=== PATIENT | male | born 1980 | race Caucasian/White ===

== ENCOUNTER 2017-01-16 16:19 | Outpatient (CLI) | payer OTHER ==
--- NOTE | 2017-01-16 18:09 | MRI Report ---
EXAM: LEFT KNEE MRI WITHOUT CONTRAST EXAM DATE: 01/16/2017 05:26 PM. CLINICAL HISTORY: Knee twisty injury 12/23/16, persistent effusion. COMPARISON: None. TECHNIQUE: Multiplanar, multisequence T1-weighted and fluid-sensitive sequences of the knee without c ontrast. Other: None. FINDINGS: Bones: No fractures or subluxations. No marrow edema. No bone lesions. Articular Cartilage: Unremarkable. Medial Meniscus: Undersurface partial-thickness tear posterior horn medial meniscus. Please see karolina s 501 image 24, series 801 image 23. No displaced fragment. Lateral Meniscus: The lateral meniscus is intact. Cruciate Ligaments: The anterior and posterior cruciate ligaments are intact. Collateral Ligaments: The medial collateral and lateral collateral ligamentous structures are intact. Tendons: The quadriceps, patellar, semimembranosus, and popliteus tendons are unremarkable. Musculature: No edema or fatty atrophy. Other: Trace joint effusion. Small popliteal cyst. No loose bodies. The medial and lateral retinacul a are intact. The subcutaneous tissues and fat pads are unremarkable. IMPRESSION: 1. Undersurface partial-thickness tear posterior horn medial meniscus. No displaced fragment. 2. Lateral meniscus, cruciates and collaterals appear unremarkable. 3. Trace joint effusion, small popliteal cyst. No loose bodies. [facility] MUSCULOSKELET[facility] RADIOLOGY SECTION Referring Provider Line: [phone] SITE ID: [id number]
== END 2017-01-16 16:20 | disposition home or self-care (01) ==
LOC: DI 16:19
PROVIDERS: ATTEND Family Medicine
DX: S83.242A Other tear of medial meniscus, current injury, left knee, initial encounter (principal); M25.462 Effusion, left knee; M71.22 Synovial cyst of popliteal space [Baker], left knee

== ENCOUNTER 2017-08-31 06:16 | Day surgery (SDC) | payer OTHER ==
[2017-08-31] MEDS ORDERED: CELECOXIB 100 MG CAPSULE PO ONE (06:31)
[2017-08-31] MEDS ORDERED: ceFAZolin 2 GM/50 ML 2 GM/50 ML BAG IV ONE (06:32)
[2017-08-31] MEDS ORDERED: ACETAMINOPHEN 1,000 MG/100 ML 100 ML IV ONE (06:32)
[2017-08-31] MEDS ORDERED: LACTATED RINGERS 1,000 ML IV ONE ×3 (06:49→08:20)
[2017-08-31] MEDS ORDERED: ROPIVACAINE 0.5% PF 20 ML AMPULE EP ONE (08:03)
[2017-08-31] MEDS ORDERED: DEXAMETHASONE 4 MG/ML VIAL IVP ONE (08:03)
[2017-08-31] MEDS ORDERED: PROPOFOL 200 MG/20 ML VIAL IVP ONE (08:03)
[2017-08-31] MEDS ORDERED: ONDANSETRON 4 MG/2 ML VIAL IVP ONE (08:03)
[2017-08-31] MEDS ORDERED: ESMOLOL 100 MG/10 ML VIAL IVP ONE (08:03)
[2017-08-31] MEDS ORDERED: MIDAZOLAM 2 MG/2 ML VIAL IVP ONE (08:03)
[2017-08-31] MEDS ORDERED: fentaNYL 100 MCG/2 ML VIAL IVP ONE (08:03)
[2017-08-31] MEDS ORDERED: LIDOCAINE MPF 1%-EPI 1:200000 30 ML VIAL SUBQ ONE ×2 (08:29→09:49)
[2017-08-31] MEDS ORDERED: BUPIVACAINE 0.5% PF 30 ML VIAL INFIL ONE ×2 (08:29→09:49)
[2017-08-31] MEDS ORDERED: EPINEPHrine 1 MG/ML AMP IR ONE (08:41)
[2017-08-31] MEDS ORDERED: KETOROLAC 15 MG/ML VIAL ONE (10:22)
[2017-08-31] MEDS: fentaNYL 100 MCG/2 ML VIAL ONE ×2 (10:33→10:38)
[2017-08-31] MEDS ORDERED: SODIUM CHLORIDE FLUSH 0.9% 10 ML SYRINGE ONE (10:38)
[2017-08-31] MEDS ORDERED: HYDROcod/ACETAM 5/325 MG TABLET ONE (11:03)
[2017-08-31 11:32] VITALS: BP 129/74
--- NOTE | 2017-08-31 13:01 | OPERATIVE REPORT ---
DATE OF SERVICE: 08/31/2017 Physician: Gisela Stark MD DATE OF SURGERY: 08/31/2017 PREOPERATIVE DIAGNOSIS: Left knee anterior cruciate ligament and medial meniscus tears. POSTOPERATIVE DIAGNOSIS: Left knee anterior cruciate ligament and medial meniscus tears. PROCEDURE PERFORMED: Left knee exam under anesthesia, arthroscopy, partial medial meniscectomy and allograft anterior cruciate ligament reconstruction. OPERATING SURGEON: Gisela Stark MD ANESTHESIA: General and femoral nerve block. INDICATIONS FOR SURGERY: The patient is a 37-year-old male with an ACL injury of his left knee with subsequent knee pain and giving way episodes and inability to improve with nonoperative measures. MRI confirmed the diagnosis and surgery was recommended for mu-ism of stability. FINDINGS AT SURGERY: The patient's knee exam showed a small effusion that at arthroscopy was nonbloody. The patient had crucial laxity and pivot shift findings. At arthroscopy, the patient was noted to have shredded remnants of ACL and flap tears in the anterior and posterior horns of the medial meniscus representing a displaced and torn bucket-handle tear. The patient's lateral meniscus was intact and cartilaginous surfaces were intact. OPERATIVE PROCEDURE: The patient was taken to the operating room, was given a general anesthetic and a femoral nerve block, was in the supine position with a tourniquet on the thigh and the limb supported in a leg ball. Under tourniquet pressure of 300 mmHg, arthroscopy was undertaken. The findings noted above. A shaver was used to debride back the remnants of ACL and a basket was used to trim the flap tears of the meniscus, anterior and posterior, and remove the fragments with suction. The remaining knee was carefully examined. Then, a notchplasty performed with a bur slightly widening the notch to accommodate an ACL reconstruction. The graft was prepared on the back table utilizing allograft tibialis anterior _TENDON____ [TIME: 02:42] a reconstruction graft. Following this, the graft preparation was done at the back table utilizing tibialis anterior allograft aiming for a size 8 graft and this required slight trimming of the graft in preparation and pant leg incision of the graft to allow passage into the AperFix femoral device passing each limb of the pant leg of the graft into the device with suture on each end and preparing for insertion and the AperFix insertion handle. The tibial drill guide was then utilized to place a tibial tunnel in an isometric position. Following this, the offset guide was used on the lateral wall of the notch to place the femoral tunnel and once these were cleaned and debrided, the graft was inserted through the tunnels up into the femoral tunnel and the AperFix device deployed for fixation. On the tibial side the tensioning handle was applied to the sutures. The graft was rotated to effect an anteromedial and posterolateral bundle orientation and then the graft was fixated in the tunnel using the AperFix system of screw fixation. Excess graft was trimmed away. The knee was examined through range of motion and the knee had been cycled prior to fixation and the graft appeared isometric and well fixed and the pivot shift and Poly exam were stable. Following this, the knee was flushed. Instruments were withdrawn. Portals were closed with interrupted nylon. The anterior knee incision was closed with Monocryl. Sterile dressings were applied. The patient was then placed into the hinged knee brace and taken to the recovery room in stable condition. ESTIMATED BLOOD LOSS: Minimal. COMPLICATIONS: None. COUNTS: Sponge and needle counts correct. TD: 08/31/2017 13:00 URIEL
== END 2017-08-31 06:17 | disposition home or self-care (01) ==
LOC: SDS 06:16
PROVIDERS: ATTEND Orthopaedic Surgery
PROC: 0MRP4KZ Replacement of Left Knee Bursa and Ligament with Nonautologous Tissue Substitute, Percutaneous Endoscopic Approach (ICD-10-PCS; 2017-08-31)
PROC: 0SBD4ZZ Excision of Left Knee Joint, Percutaneous Endoscopic Approach (ICD-10-PCS; principal; 2017-08-31 07:30)
DX: S83.512A Sprain of anterior cruciate ligament of left knee, initial encounter (principal); S83.212A Bucket-handle tear of medial meniscus, current injury, left knee, initial encounter; F17.210 Nicotine dependence, cigarettes, uncomplicated
CPT/HCPCS: 29881; 29888; A9270; C1762; C1776; J0131; J0690; J7120

== ENCOUNTER 2018-12-05 10:39 | Outpatient (CLI) | payer SELFPAY | END 2018-12-05 10:40 | disposition critical access hospital (66) | LOC: EMS 10:39 | PROVIDERS: ATTEND Surgery | DX: R22.0 Localized swelling, mass and lump, head (principal); R13.10 Dysphagia, unspecified; W57.XXXA Bitten or stung by nonvenomous insect and other nonvenomous arthropods, initial encounter | CPT/HCPCS: A0425; A0427 ==

== ENCOUNTER 2018-12-05 11:03 | Emergency (ER) | payer SELFPAY ==
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
[2018-12-05] MEDS ORDERED: SODIUM CHLORIDE 0.9% 1,000 ML IV ONE (12:17)
[2018-12-05] MEDS ORDERED: DEXAMETHASONE 10 MG/ML VIAL IVP STA (12:17)
[2018-12-05] MEDS ORDERED: diphenhydrAMINE INJ 50 MG/ML VIAL IVP STA (12:18)
[2018-12-05] MEDS ORDERED: FAMOTIDINE 20 MG/2 ML VIAL IVP STA (12:19)
[2018-12-05] MEDS ORDERED: CETIRIZINE 10 MG TABLET PO STA (12:19)
[2018-12-05 14:04] VITALS: BP 126/75
== END 2018-12-05 14:03 | disposition home or self-care (01) ==
LOC: EDUNIT# → ED 11:03
DX: R42 Dizziness and giddiness (principal); L29.9 Pruritus, unspecified; T63.443A Toxic effect of venom of bees, assault, initial encounter; F17.200 Nicotine dependence, unspecified, uncomplicated
CPT/HCPCS: 96361; 96374; 99283; A9270; J1200

== ENCOUNTER 2019-11-11 13:34 | Emergency (ER) | payer OTHER ==
[2019-11-11 13:52] VITALS: BP 131/78
--- NOTE | 2019-11-11 14:00 | ED Physician Documentation ---
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 Pain was significant but is now mild. Tetanus is out of date.) Review of Systems Constitutional: denies: Fever, Chills Throat: reports: Reviewed and negative Cardiac: reports: Reviewed and negative Respiratory: reports: Reviewed and negative PD PAST MEDICAL HISTORY - Past Medical History Cardiovascular: None Respiratory: None Endocrine/Autoimmune: None GI: GERD : None HEENT: Other Psych: Claustrophobia Musculoskeletal: None Derm: None - Past Surgical History Past Surgical History: No General: Other - Present Medications Home Medications: Ambulatory Orders Medication Instructions Recorded Confirmed Cephalexin [Keflex] 500 mg PO Q6H #28 capsule 11/11/19 - Allergies Allergies/Adverse Reactions: Allergies Allergy/AdvReac Type Severity Reaction Status Date / Time bee venom protein (honey bee) Allergy Anaphylaxis Verified 11/11/19 13:52 - Social History Does the pt smoke?: Yes Smoking Status: Current every day smoker Does the pt drink ETOH?: Yes Does the pt have substance abuse?: Yes - Immunizations Immunizations are current?: No Immunizations: TDAP >10years/unknown - POLST Patient has POLST: No PD ED PE NORMAL - Vitals Vital signs reviewed: Yes - General General: Alert and oriented X 3, No acute distress - Extremities Extremities: Other (There is a small laceration on the pulp of the right index finger, palmar side. There is no tracking tenderness along the flexor tendon sheath. He has full range of motion and normal neurovascular function at the tip.) - Neuro Neuro: Alert and oriented X 3, Normal speech Results - Vitals Vitals: Vital Signs - 24 hr 11/11/19 13:44 Temperature 36.5 C Heart Rate 66 Respiratory 20 Rate Blood Pressure 131/78 H O2 Saturation 99 Oxygen O2 Source Room air PD MEDICAL DECISION MAKING - ED course ED course: 39-year-old gentleman with high-pressure water injury of the finger. There were no other chemicals in it and so that is good. His pain is improving. X-ray does show air in the pulp, but no bony injury. He was placed on antibiotics and tetanus was updated and given close return precautions. Departure - Departure Disposition: 01 Home, Self Care Clinical Impression: High-pressure injection injury of finger Qualifiers: Encounter type: initial encounter Laterality: right Qualified Code(s): S69.81XA - Other specified injuries of right wrist, hand and finger(s), initial encounter Condition: Good Record reviewed to determine appropriate education?: Yes Instructions: ED Laceration Hand Prescriptions: Cephalexin [Keflex] 500 mg PO Q6H #28 capsule Comments: The bone looks okay on the x-ray, return if pain starts to worsen again or you develop symptoms of infection including redness, swelling, drainage, fever.
[2019-11-11] MEDS: cephALEXin 250 MG CAPSULE PO STA (14:04)
[2019-11-11] MEDS: TETANUS/DIPHTHERIA/PERTUSSIS 0.5 ML SYRINGE IM ONE (14:05)
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
== END 2019-11-11 14:30 | disposition home or self-care (01) ==
LOC: ED 13:34
DX: S61.210A Laceration without foreign body of right index finger without damage to nail, initial encounter (principal); T70.8XXA Other effects of air pressure and water pressure, initial encounter; X58.XXXA Exposure to other specified factors, initial encounter; Y93.89 Activity, other specified; Y92.89 Other specified places as the place of occurrence of the external cause; Y99.0 Civilian activity done for income or pay; F17.200 Nicotine dependence, unspecified, uncomplicated
CPT/HCPCS: 1040M; 73140; 90471; 90715; 99283; A9270

== ENCOUNTER 2020-07-27 14:15 | Outpatient (CLI) | payer SELFPAY | END 2020-07-27 14:16 | disposition critical access hospital (66) | LOC: EMS 14:15 | PROVIDERS: ATTEND Surgery | DX: R40.4 Transient alteration of awareness (principal) | CPT/HCPCS: A0425; A0427 ==

== ENCOUNTER 2020-07-27 14:43 | Inpatient (IN) | payer SELFPAY ==
[2020-07-27] MEDS ORDERED: SODIUM CHLORIDE 0.9% 1,000 ML IV STA ×4 (14:51→16:04)
[2020-07-27] MEDS ORDERED: NALOXONE 0.4 MG/ML VIAL IVP STA (14:51)
[2020-07-27] MEDS ORDERED: THIAMINE INJ 100 MG in SODIUM CHLORIDE 0.9% 50 ML IV STA (14:51)
[2020-07-27] MEDS ORDERED: NALOXONE 0.4 MG/ML VIAL ONE (14:57)
--- NOTE | 2020-07-27 15:00 | ED Physician Documentation ---
PD HPI ALTERED MENTAL STATUS - Stated complaint Stated Complaint: HBD - Chief complaint Chief Complaint: Neuro - History obtained from History obtained from: EMS - Additional information Additional information: 40-year-old gentleman brought in by ambulance, paramedics report was that he was drinking heavily yesterday and last drink was at 4 PM yesterday. Today remained obtunded all day. On initial evaluation the patient was unable to give any history because of altered mental status. He had low respiratory rate and satting only in the mid 80s on 6 L of supplemental oxygen. Prehospital blood sugar was unremarkable. After initial evaluation I gave him 0.4 mg of Narcan, he was still altered but woke up and said he fell off the porch yesterday. Unable to give any other details at such time a modified trauma was called and he was placed in a c-collar. Review of Systems Unable to obtain: AMS, Confused PD PAST MEDICAL HISTORY - Past Medical History Cardiovascular: None Respiratory: None Neuro: None Endocrine/Autoimmune: None GI: GERD : None HEENT: Other Psych: Claustrophobia Musculoskeletal: None Derm: None - Past Surgical History Past Surgical History: No General: Other Ortho: ACL reconstruction - Present Medications Home Medications: Ambulatory Orders Medication Instructions Recorded Confirmed Cephalexin [Keflex] 500 mg PO Q6H #28 capsule 11/11/19 - Allergies Allergies/Adverse Reactions: Allergies Allergy/AdvReac Type Severity Reaction Status Date / Time bee venom protein (honey bee) Allergy Anaphylaxis Verified 07/27/20 14:57 - Social History Does the pt smoke?: Yes Smoking Status: Current every day smoker Does the pt drink ETOH?: Yes Does the pt have substance abuse?: Yes - Immunizations Immunizations are current?: No Immunizations: TDAP >10years/unknown - POLST Patient has POLST: No PD ED PE NORMAL - Vitals Vital signs reviewed: Yes - General General: Other (Initially responsive to sternal rub, more responsive but still altered after Narcan) - HEENT HEENT: Other (Pupils small but not pinpoint, reactive, symmetric. Very dry mucous membranes) - Neck Neck: No bony TTP (But placed in a c-collar during initial evaluation given the above history.) - Cardiac Cardiac: RRR, No murmur - Respiratory Respiratory: No respiratory distress, Clear bilaterally - Abdomen Abdomen: Normal bowel sounds, Soft, Non tender - Back Back: No CVA TTP, No spinal TTP - Derm Derm: Normal color, Warm and dry - Extremities Extremities: No edema, No calf tenderness / cord - Neuro Neuro: No motor deficit, No sensory deficit, Other (Initially not following commands but after Narcan would follow simple commands and seemed to have good symmetric strength. Moving all extremities without tenderness.) Eye Opening: To Pain (before narcan) Motor: Localizes to Pain (before narcan) Verbal: Incomprehensible (before narcan) GCS Score: 9 Results - Vitals Vitals: Vital Signs - 24 hr 07/27/20 07/27/20 07/27/20 14:43 14:49 15:07 Temperature 38.0 C H Heart Rate 84 Respiratory 8 L 16 Rate Blood Pressure 122/76 O2 Saturation 83 L 95 07/27/20 07/27/20 07/27/20 15:22 15:55 16:02 Temperature Heart Rate 91 79 101 H Respiratory 21 27 H 20 Rate Blood Pressure 164/96 H 164/94 H 150/94 H O2 Saturation 89 L 83 L 86 L 07/27/20 07/27/20 16:34 16:48 Temperature 38.0 C H Heart Rate 79 95 Respiratory 21 25 H Rate Blood Pressure 154/93 H 154/93 H O2 Saturation 91 L 93 Oxygen O2 Source Non-rebreather mask Oxygen Flow Rate 15 - EKG (time done) 1534 Rate: Rate (enter#) (84) Rhythm: NSR, LAE [place]: Normal QRS: LVH Ischemia: Q waves (anterior), Non specific changes - Labs Labs: Microbiology 07/27/20 16:15 CSF Culture - Preliminary Cerebral Spinal Fluid Laboratory Tests 07/27/20 07/27/20 07/27/20 14:51 14:51 14:51 WBC 12.8 H RBC 4.40 L Hgb 15.0 Hct 43.0 MCV 97.7 H MCH 34.1 H MCHC 34.9 RDW 14.2 Plt Count 156 MPV 9.6 Neut # (Auto) 11.2 H Lymph # (Auto) 0.4 L Gage # (Auto) 0.9 Eos # (Auto) 0.2 Baso # (Auto) 0.0 Absolute Nucleated RBC 0.00 Band Neuts % (Manual) Not Reportable Abnorm Lymph % (Manual) Not Reportable Nucleated RBC % 0.0 Neutrophils # (Manual) Not Reportable Lymphocytes # (Manual) Not Reportable Monocytes # (Manual) Not Reportable Eosinophils # (Manual) Not Reportable Basophils # (Manual) Not Reportable Differential Comment MANUAL=AUTO DIFF Manual Slide Review Indicated Platelet Estimate NORMAL (130-450,000) Platelet Morphology NORMAL APPEARANCE RBC Morph Micro Appear NORMAL APPEARANCE PT 12.2 INR 1.1 Sodium 143 Potassium 3.3 L Chloride 103 Carbon Dioxide 23 Anion Gap 17.0 H BUN 23 H Creatinine 3.6 H Estimated GFR (MDRD) 19 L Glucose 154 H Lactic Acid Calcium 7.8 L Magnesium 1.9 Total Bilirubin 1.2 H AST 601 H ALT 221 H Alkaline Phosphatase 64 Ammonia Total Creatine Kinase 08311 H* Total Protein 7.2 Albumin 4.1 Globulin 3.1 Albumin/Globulin Ratio 1.3 Lipase 21 L CSF Color CSF Clarity Xanthrochromic CSF WBC CSF RBC CSF Cell Count Tube # CSF Glucose CSF Total Protein Nasal Adenovirus (PCR) Nasal B. parapertussis DNA (PCR) Nasal Coronavir 229E PCR Nasal Coronavir HKU1 PCR Nasal Coronavir NL63 PCR Nasal Coronavir OC43 PCR Nasal Enterovir/Rhinovir PCR Nasal Influenza B PCR Nasal Influenza A PCR Nasal Parainfluen 1 PCR Nasal Parainfluen 2 PCR Nasal Parainfluen 3 PCR Nasal Parainfluen 4 PCR Nasal RSV (PCR) Nasal B.pertussis DNA PCR Nasal C.pneumoniae (PCR) John Human Metapneumo PCR Nasal M.pneumoniae (PCR) Nasal SARS-CoV-2 (PCR) Salicylates < 6.0 Urine Opiates Screen Ur Oxycodone Screen Urine Methadone Screen Ur Propoxyphene Screen Acetaminophen < 10 L Ur Barbiturates Screen Ur Tricyclics Screen Ur Phencyclidine Scrn Ur Amphetamine Screen U Methamphetamines Scrn U Benzodiazepines Scrn Urine Cocaine Screen U Cannabinoids Screen Ethyl Alcohol 133.3 07/27/20 07/27/20 07/27/20 15:17 15:33 15:49 WBC RBC Hgb Hct MCV MCH MCHC RDW Plt Count MPV Neut # (Auto) Lymph # (Auto) Gage # (Auto) Eos # (Auto) Baso # (Auto) Absolute Nucleated RBC Band Neuts % (Manual) Abnorm Lymph % (Manual) Nucleated RBC % Neutrophils # (Manual) Lymphocytes # (Manual) Monocytes # (Manual) Eosinophils # (Manual) Basophils # (Manual) Differential Comment Manual Slide Review Platelet Estimate Platelet Morphology RBC Morph Micro Appear PT INR Sodium Potassium Chloride Carbon Dioxide Anion Gap BUN Creatinine Estimated GFR (MDRD) Glucose Lactic Acid 3.8 H* Calcium Magnesium Total Bilirubin AST ALT Alkaline Phosphatase Ammonia Total Creatine Kinase Total Protein Albumin Globulin Albumin/Globulin Ratio Lipase CSF Color CSF Clarity Xanthrochromic CSF WBC CSF RBC CSF Cell Count Tube # CSF Glucose CSF Total Protein Nasal Adenovirus (PCR) NOT DETECTED Nasal B. parapertussis DNA (PCR) NOT DETECTED Nasal Coronavir 229E PCR NOT DETECTED Nasal Coronavir HKU1 PCR NOT DETECTED Nasal Coronavir NL63 PCR NOT DETECTED Nasal Coronavir OC43 PCR NOT DETECTED Nasal Enterovir/Rhinovir PCR NOT DETECTED Nasal Influenza B PCR NOT DETECTED Nasal Influenza A PCR NOT DETECTED Nasal Parainfluen 1 PCR NOT DETECTED Nasal Parainfluen 2 PCR NOT DETECTED Nasal Parainfluen 3 PCR NOT DETECTED Nasal Parainfluen 4 PCR NOT DETECTED Nasal RSV (PCR) NOT DETECTED Nasal B.pertussis DNA PCR NOT DETECTED Nasal C.pneumoniae (PCR) NOT DETECTED John Human Metapneumo PCR NOT DETECTED Nasal M.pneumoniae (PCR) NOT DETECTED Nasal SARS-CoV-2 (PCR) NOT DETECTED Salicylates Urine Opiates Screen POSITIVE H Ur Oxycodone Screen NEGATIVE Urine Methadone Screen NEGATIVE Ur Propoxyphene Screen NEGATIVE Acetaminophen Ur Barbiturates Screen NEGATIVE Ur Tricyclics Screen NEGATIVE Ur Phencyclidine Scrn NEGATIVE Ur Amphetamine Screen NEGATIVE U Methamphetamines Scrn NEGATIVE U Benzodiazepines Scrn NEGATIVE Urine Cocaine Screen NEGATIVE U Cannabinoids Screen POSITIVE H Ethyl Alcohol 07/27/20 07/27/20 16:00 16:15 WBC RBC Hgb Hct MCV MCH MCHC RDW Plt Count MPV Neut # (Auto) Lymph # (Auto) Gage # (Auto) Eos # (Auto) Baso # (Auto) Absolute Nucleated RBC Band Neuts % (Manual) Abnorm Lymph % (Manual) Nucleated RBC % Neutrophils # (Manual) Lymphocytes # (Manual) Monocytes # (Manual) Eosinophils # (Manual) Basophils # (Manual) Differential Comment Manual Slide Review Platelet Estimate Platelet Morphology RBC Morph Micro Appear PT INR Sodium Potassium Chloride Carbon Dioxide Anion Gap BUN Creatinine Estimated GFR (MDRD) Glucose Lactic Acid Calcium Magnesium Total Bilirubin AST ALT Alkaline Phosphatase Ammonia 11.3 Total Creatine Kinase Total Protein Albumin Globulin Albumin/Globulin Ratio Lipase CSF Color COLORLESS CSF Clarity CLEAR Xanthrochromic ABSENT CSF WBC 0 CSF RBC 1 CSF Cell Count Tube # CSF TUBE# 3 CSF Glucose 90 H CSF Total Protein 48 H Nasal Adenovirus (PCR) Nasal B. parapertussis DNA (PCR) Nasal Coronavir 229E PCR Nasal Coronavir HKU1 PCR Nasal Coronavir NL63 PCR Nasal Coronavir OC43 PCR Nasal Enterovir/Rhinovir PCR Nasal Influenza B PCR Nasal Influenza A PCR Nasal Parainfluen 1 PCR Nasal Parainfluen 2 PCR Nasal Parainfluen 3 PCR Nasal Parainfluen 4 PCR Nasal RSV (PCR) Nasal B.pertussis DNA PCR Nasal C.pneumoniae (PCR) John Human Metapneumo PCR Nasal M.pneumoniae (PCR) Nasal SARS-CoV-2 (PCR) Salicylates Urine Opiates Screen Ur Oxycodone Screen Urine Methadone Screen Ur Propoxyphene Screen Acetaminophen Ur Barbiturates Screen Ur Tricyclics Screen Ur Phencyclidine Scrn Ur Amphetamine Screen U Methamphetamines Scrn U Benzodiazepines Scrn Urine Cocaine Screen U Cannabinoids Screen Ethyl Alcohol - Rads (name of study) 1v chest Radiology: EMP read contemporaneously (Possible pulmonary vascular fullness.) CT Cspine Radiology: EMP read contemporaneously (DDD/NAD) CT Head Radiology: EMP read contemporaneously (sinus mucosal cyst, NAD) CT Chest Radiology: EMP read contemporaneously (Bilateral ill-defined groundglass opacities patchy infiltrate versus contusion. No other evidence of trauma.) CT A/P Radiology: EMP read contemporaneously (No traumatic injury. Severe steatosis. 6.1 x 3.3 x 4.5 cm cystic structure that could be a renal or splenic cyst.) Procedures - Lumbar Puncture Position: Laying left side Location: L3-L4 Anesthesia: Local lidocaine CSF: Clear Other: Sterile prep and drape, Patient tolerated well, No complications PD MEDICAL DECISION MAKING - ED course ED course: This 40-year-old gentleman presents by ambulance reportedly just intoxicated but reportedly has not drank since yesterday afternoon and then laid down on the floor and was unarousable this morning. On arrival he is hypopneic, significantly hypoxemic into the mid 80s on 6 L nasal cannula, and febrile. He did arouse somewhat with Narcan but denied at that point using anything other than alcohol. He did say something about having fallen off the porch and at that juncture a c-collar was placed in a modified trauma was called as well. A pepe scan and chest x-ray were done. Given the fever respiratory panel and blood cultures were also obtained. This is in addition to routine labs. He also received a liter of saline and 100 mg of thiamine IV. While he was over in CT scanner I talked to his mom, she is available at [phone]. She had heard from the patient's girlfriend, Nani, who is available at [phone] that he drank during the [employer] game yesterday and then lay down on the floor in the living room and just basically never got up since. Mom does not know of any drug use other than marijuana besides the alcohol. No report of trauma from her. I tried calling Nani too, reportedly she is on the way to the hospital, but who ever I talked to said that he seemed fine earlier in the day and did not seem intoxicated during the [employer] game but then corroborated that he laid down or fell asleep on the living room floor and laid there all night and then they could not arouse him this morning. No report of trauma from him either. His girlfriend arrived at the bedside and corroborated the above history. She did not think he drank that much during the football game yesterday and then went to sleep on the floor and was unarousable this morning. She does not think he is using any other substances. No complaints of illness prior to that. No sick contacts. Work-up demonstrates he is in significant rhabdomyolysis with renal failure, has liver dysfunction as well. White count of 12,000 and he is febrile here. He was cultured up and LP was done. The LP was unremarkable from a cellular standpoint. He was given Rocephin and vancomycin. Also 3 L of normal saline and twice maintenance after that. A Barraza was placed. Bio fire negative. BioFire respiratory panel ordered to rapidly test specifically for COVID-19 in this patient who is expected to be hospitalized Spoke with Dr. Bacon for admission at 5:55 PM. He will go to the ICU. - Critical Care Time(min): 50 Time Includes: Direct patient care, Review records, Reassess patient, Document care, Coordinate care, Medical consult, Family consult for tx dec Data interpretation: Labs, Pulse ox Procedures included in critical care time: Peripheral IV Procedures excluded from critical care time: Lumbar puncture, EKG Departure - Departure Disposition: [facility] DC/Xfer Clinical Impression: Alcoholism, Hypoxemia ARF (acute renal failure) Qualifiers: Acute renal failure type: unspecified Qualified Code(s): N17.9 - Acute kidney failure, unspecified AMS (altered mental status) Qualifiers: Altered mental status type: delirium Qualified Code(s): R41.0 - Disorientation, unspecified Rhabdomyolysis Qualifiers: Rhabdomyolysis type: non-traumatic Qualified Code(s): M62.82 - Rhabdomyolysis Fever Qualifiers: Fever type: unspecified Qualified Code(s): R50.9 - Fever, unspecified Condition: Critical
[2020-07-27] MEDS ORDERED: IOVERSOL 320 100 ML VIAL IVP ONE ×2 (15:06→15:43)
[2020-07-27 15:08] LABS: BASOPHILS % (AUTO) 0.3 %; EOSINOPHILS # (AUTO) 0.2 10^3/uL (0.0-0.7); EOSINOPHILS % (AUTO) 1.3 %; LYMPHOCYTES # (AUTO) 0.4 10^3/uL (1.5-3.5); MEAN CORPUSCULAR HEMOGLOBIN 34.1 pg (27.0-31.0); MEAN CORPUSCULAR HGB CONC 34.9 g/dL (32.0-36.0); MEAN CORPUSCULAR VOLUME 97.7 fL (80.0-94.0); MEAN PLATELET VOLUME 9.6 fL (7.4-11.4); MONOCYTES # (AUTO) 0.9 10^3/uL (0.0-1.0); NEUTROPHILS # (AUTO) 11.2 10^3/uL (1.5-6.6); NEUTROPHILS % (AUTO) 87.8 %; PLT - PLATELET COUNT 156 10^3/uL (130-450); RED CELL DISTRIBUTION WIDTH 14.2 % (12.0-15.0); WHITE BLOOD COUNT 12.8 x10^3/uL (4.8-10.8)
--- NOTE | 2020-07-27 15:16 | XRAY Report ---
PROCEDURE: Chest 1 View X-Ray INDICATIONS: fall, etoh TECHNIQUE: One view of the chest was acquired. COMPARISON: Chest radiograph dated 06/29/2016 FINDINGS: Surgical changes and devices: None. Lungs and pleura: There is prominence of the central pulmonary vasculature without a focal airspace opacity. No pleural effusion or pneumothorax is seen. Mediastinum: Mediastinal contours appear normal. Heart size appears mildly enlarged, although findi ngs may be related to AP technique. Bones and chest wall: No suspicious bony lesions. Overlying soft tissues appear unremarkable. IMPRESSION: Prominence of the central pulmonary vasculature with borderline cardiomegaly may indicate mild conges tive heart failure. No acute airspace consolidation, pleural effusion, or pneumothorax is seen. Findi ngs may be better evaluated on the pending CT chest exam, and comparison with the results of that exa m is recommended. Reviewed by: Nikhil Beckwith MD on 07/27/2020 3:14 PM PST Approved by: Nikhil Beckwith MD on 07/27/2020 3:14 PM PST Station ID: [id number]
[2020-07-27 15:26] LABS: INR 1.1 (0.8-1.2); PT - PROTHROMBIN TIME 12.2 secs (9.9-12.6)
--- NOTE | 2020-07-27 15:31 | CT Report ---
PROCEDURE: CERVICAL SPINE WO INDICATIONS: fall, etoh TECHNIQUE: Noncontrast 3 mm thick sections acquired from the skull base to the T4 level. Sagittal and coronal r eformats were then constructed. For radiation dose reduction, the following was used: automated exp osure control, adjustment of mA and/or kV according to patient size. COMPARISON: None. FINDINGS: Image quality: Excellent. Bones: No fractures or dislocations. Mild degenerative endplate changes are noted at C5-6 and C6-7 levels. Visualized superior ribs are intact. Soft tissues: Prevertebral soft tissues are normal in thickness. No paravertebral hematomas. No ap ical pneumothoraces. IMPRESSION: 1. No acute cervical spine fracture or dislocation. 2. Mild degenerative endplate changes in lower cervical spine. Reviewed by: Hayes Concepcion MD on 07/27/2020 3:30 PM PST Approved by: Hayes Concepcion MD on 07/27/2020 3:30 PM PST Station ID: [id number]
--- NOTE | 2020-07-27 15:31 | CT Report ---
PROCEDURE: HEAD WO INDICATIONS: fall, etoh TECHNIQUE: Noncontrast 4.5 mm thick angled axial sections acquired from the foramen magnum to the vertex. For r adiation dose reduction, the following was used: automated exposure control, adjustment of mA and/or kV according to patient size. COMPARISON: None. FINDINGS: Image quality: Excellent. CSF spaces: Basal cisterns are patent. No extra-axial fluid collections. Ventricles are normal in size and shape. Brain: No midline shift. No intracranial masses or hemorrhage. Monroy-white matter interface is norm al. Skull and face: Calvarium and visualized facial bones are intact, without suspicious lesions. Sinuses: A mucosal retention cyst versus polyp is seen in the right maxillary sinus. The remaining vi sualized paranasal sinuses are clear. IMPRESSION: No acute intracranial abnormality. Reviewed by: Nikhil Beckwith MD on 07/27/2020 3:29 PM PST Approved by: Nikhil Beckwith MD on 07/27/2020 3:29 PM PST Station ID: [id number]
--- NOTE | 2020-07-27 15:39 | CT Report ---
PROCEDURE: CHEST W INDICATIONS: fall, etoh CONTRAST: IV CONTRAST: Optiray 320 ml: 100 PO CONTRAST: *NO PO CONTRAST TECHNIQUE: After the administration of intravenous contrast, 5 mm thick sections acquired from the pulmonary api mina to the posterior costophrenic angles. 7 mm thick coronal MIP reformats were acquired. For radia tion dose reduction, the following was used: automated exposure control, adjustment of mA and/or kV according to patient size. COMPARISON: None. FINDINGS: Image quality: Excellent. Lungs and pleura: Ill-defined airspace opacities and groundglass opacities are seen scattered in post erior aspect of bilateral lung angel. 3 mm solid nodule is seen in posterior aspect of right lower l obe series 3 image 160. Calcified granuloma is noted in posterior aspect of left lower lobe and measu res 5 mm in size series 3 image 160. Additional 3-5 mm nodular densities in the subpleural space of p osterior right lower lobe are seen series 3 images 182 195. No pleural effusions or pneumothorax. Ce ntral and peripheral airways are patent and normal in caliber. Mediastinum: No mediastinal hematoma. Heart size is normal. No pericardial effusion. No mediastina l or hilar adenopathy by size criteria. Thoracic aorta and central pulmonary arteries are normal in size. Esophagus is normal in caliber. No hiatal hernia. Bones and chest wall: No suspicious bony lesions. No vertebral body compression fractures. No axil lina or supraclavicular adenopathy by size criteria. Thyroid gland it is within normal limits. Abdomen: Please refer to CT of abdomen and pelvis report. IMPRESSION: 1. Ill-defined airspace opacities and groundglass opacity seen in posterior aspect of bilateral lung angel most prominent in bilateral lower lobes with scattered subcentimeter nodular densities as desc ribed above. Finding most likely represent bilateral lower lobe patchy infiltrates versus contusion. No gross acute rib fracture is identified. 2. No mediastinal hematoma or lymphadenopathy. No pericardial effusion. Airway is patent. 3. No compression fracture or spondylolisthesis is seen in thoracic spine. Reviewed by: Hayes Concepcion MD on 07/27/2020 3:37 PM PST Approved by: Hyaes Concepcion MD on 07/27/2020 3:37 PM PST Station ID: [id number]
--- NOTE | 2020-07-27 15:47 | CT Report ---
PROCEDURE: Abdomen/Pelvis W INDICATIONS: fall, etoh CONTRAST: IV CONTRAST: Optiray 320 ml: 100 PO CONTRAST: *NO PO CONTRAST TECHNIQUE: After the administration of IV contrast, 5 mm thick sections acquired from the diaphragms to the symp hysis. 5 mm thick coronal and sagittal reformats were acquired. For radiation dose reduction, the f ollowing was used: automated exposure control, adjustment of mA and/or kV according to patient size. COMPARISON: None. FINDINGS: Image quality: Excellent. ABDOMEN: Lung bases: Please refer to CT of chest report. Solid organs: Liver and spleen are normal in size. Severe hepatic steatosis is seen. No liver lacera tion or discrete hepatic lesion. No gross splenic laceration. Gallbladder is within normal limits. Biliary system is non dilated. Pancreas enhances normally. No adrenal nodules. Kidneys demonstrate normal size and enhancement, without hydronephrosis. Cystic structure measures 6.1 x 3.3 x 4.5 cm i n size is noted adjacent to inferior aspect of spleen and lateral cortex of mid to upper pole left ki dney. Peritoneum and bowel: Bowel loops demonstrate normal wall thickness and caliber. No free fluid or a ir. Appendix is visualized and is within normal limits. Nodes and vessels: No retroperitoneal or mesenteric adenopathy by size criteria. Aorta and inferior vena cava are normal in size. Miscellaneous: No ventral hernias. PELVIS: Genitourinary: Bladder wall thickness is normal. Miscellaneous: No inguinal hernias or adenopathy. Bones: No suspicious bony lesions. No vertebral body compression fractures. IMPRESSION: 1. No acute solid organ injury within abdomen or pelvis. No free fluid or free air. 2. No bowel obstruction. Normal appendix. 3. Severe hepatic steatosis. No discrete hepatic lesion. 4. 6.1 x 3.3 x 4.5 cm cystic structure situated between the inferior portion of spleen and upper to m idpole of left kidney which may represent exophytic renal cyst versus a splenic cyst. No evidence of splenic or renal parenchymal laceration. 5. No gross acute fracture or dislocation is seen in abdomen or pelvis. Reviewed by: Hayes Concepcion MD on 07/27/2020 3:45 PM PST Approved by: Hayes Concepcion MD on 07/27/2020 3:45 PM PST Station ID: [id number]
[2020-07-27 15:52] LABS: ACETAMINOPHEN < 10 ug/mL (10-30); ALBUMIN 4.1 g/dL (3.2-5.5); ALBUMIN/GLOBULIN RATIO 1.3 (1.0-2.2); ALKALINE PHOSPHATASE 64 IU/L (42-121); ALT ALANINE AMINOTRANSFERASE 221 IU/L (10-60); AST ASPARTATE AMINOTRANSFERASE 601 IU/L (10-42); BILIRUBIN,TOTAL 1.2 mg/dL (0.2-1.0); BUN - BLOOD UREA NITROGEN 23 mg/dL (6-20); CALCIUM 7.8 mg/dL (8.5-10.3); CARBON DIOXIDE - CO2 23 mmol/L (21-32); CHLORIDE 103 mmol/L (101-111); CREATININE 3.6 mg/dL (0.6-1.2); GLUCOSE 154 mg/dL (70-100); LIPASE 21 U/L (22-51); SALICYLATE < 6.0 mg/dL; SODIUM 143 mmol/L (135-145); TOTAL PROTEIN 7.2 g/dL (6.7-8.2)
[2020-07-27 15:53] LABS: CK- CREATINE KINASE 34081 IU/L (22-269)
[2020-07-27 16:00] LABS: DIFFERENTIAL COMMENT MANUAL=AUTO DIFF; PLATELET ESTIMATE, MANUAL NORMAL (130-450,000) (NORMAL); PLATELET MORPHOLOGY NORMAL APPEARANCE (NORMAL); RBC MORPHOLOGY (MULTIPLE) NORMAL APPEARANCE (NORMAL)
[2020-07-27 16:01] LABS: MAGNESIUM 1.9 mg/dL (1.7-2.8)
[2020-07-27] MEDS ORDERED: VANCOMYCIN INJ 1.5 GM in SODIUM CHLORIDE 0.9% 500 ML IV STA (16:04)
[2020-07-27] MEDS ORDERED: cefTRIAXone 2 GM in SODIUM CHLORIDE 0.9% MINIBAG 100 ML IV STA (16:04)
[2020-07-27 16:13] LABS: MUDS CUTOFF CONCENTRATIONS CUTOFF CONC BELOW:
[2020-07-27 16:34] LABS: C. PNEUMONIAE- RESP PCR PANEL NOT DETECTED
[2020-07-27 16:48] LABS: AMPHETAMINE SCREEN,URINE NEGATIVE (NEGATIVE); BENZODIAZEPINES SCREEN, URINE NEGATIVE (NEGATIVE); COCAINE SCREEN URINE NEGATIVE (NEGATIVE); METHADONE SCREEN, URINE NEGATIVE (NEGATIVE); METHAMPHETAMINES SCREEN, URINE NEGATIVE (NEGATIVE); OPIATE SCREEN, URINE POSITIVE (NEGATIVE); OXYCODONE SCREEN, URINE NEGATIVE (NEGATIVE); PROPOXYPHENE SCREEN, URINE NEGATIVE (NEGATIVE); TRICYCLIC ANTIDEPRESSANT,URINE NEGATIVE (NEGATIVE)
[2020-07-27 16:51] LABS: CSF - GLUCOSE 90 mg/dL (45-70)
[2020-07-27 16:52] LABS: CLARITY,CSF CLEAR (CLEAR); COLOR,CSF COLORLESS (COLORLESS); CSF TUBE # CSF TUBE# 3; CSF XANTHOCHROMIA ABSENT (ABSENT); RED BLOOD CELL,CSF 1 /mm^3 (0-1); WHITE BLOOD CELL,CSF 0 /mm^3 (0-5)
--- NOTE | 2020-07-27 19:22 | HISTORY & PHYSICAL EXAMINATION ---
Chief Complaint - Chief Complaint Chief Complaint: altered mental status History of Present Illness - Admitted From Admitted From:: [facility] ED - History Obtained From Records Reviewed: yes History obtained from: patient, girlfriend and ED physician - History of Present Illness HPI Comment/Other: Patient is a 40-year-old male with history significant for alcohol abuse who was brought in today for altered mental status. He drinks approximately half a bottle of vodka daily. If he goes 8 hours without alcohol consumption he states having alcohol withdrawal symptoms. Yesterday July 26, 2020 he binge drank and slept until 3 PM today. When his friends noted that he was still in the same position as the previous day and tried to wake him, he was very drowsy and difficult to arouse so they brought him to the ED for evaluation. In the ED he was found to have an oxygen saturation of 85% despite 6 L of oxygen via nasal cannula. He had a temperature of 38.7 C, lactic acid 3.8, WBC 12.8, creatinine 3.6, creatinine kinase 34,000, AST 601, ALT 200s. His blood alcohol was 133. He was given Narcan with slight improvement in his clinical status. As a result of the above he was presented for admission for further treatment. The patient received 3 L of IV fluids in the ED and also had lumbar puncture done. By the time of my assessment he was more awake however still somewhat drowsy. He complained of generalized pain. He denied abdominal pain, nausea or vomiting. He reported mild dyspnea. He has no dentition. He reports a history of methamphetamine use but stopped. His last use was 2 years ago. He also uses marijuana but denied any other recreational substance. History - Past Medical History Cardiovascular: reports: None Respiratory: reports: None Neuro: reports: None Endocrine/Autoimmune: reports: None GI: reports: GERD : reports: None HEENT: reports: Other Psych: reports: Claustrophobia Musculoskeletal: reports: None Derm: reports: None MRSA Hx?: No Other Past Medical History: Alcohol abuse - Past Surgical History General: reports: Other Ortho: reports: Knee replacement (Left), ACL reconstruction - Family & Social History Family History: Mother: Cancer (Breast cancer) Social History Notes: It appears he lives with his girlfriend. He drinks at least half a bottle of vodka daily. He smokes marijuana. He has a history of methamphetamine use but reports stopping 2 years ago. - POLST Patient has POLST: No POLST Status: Full Code Meds/Allgy - Home Medications Home Medications: Ambulatory Orders Medication Instructions Recorded Confirmed Cephalexin [Keflex] 500 mg PO Q6H #28 capsule 11/11/19 - Allergies Allergies/Adverse Reactions: Allergies Allergy/AdvReac Type Severity Reaction Status Date / Time bee venom protein (honey bee) Allergy Anaphylaxis Verified 07/27/20 14:57 Review of Systems - Constitutional Constitutional: reports: Fever, Weakness. denies: Fatigue - Eyes Eyes: denies: Pain, Dipolpia - Ears, Nose & Throat Ears, Nose & Throat: denies: Ear pain, Sore throat - Cardiovascular Cariovascular: denies: Irregular heart rate, Chest pain, Edema, Syncope, Exertional dyspnea - Respiratory Respiratory: reports: Pleuritic pain. denies: Cough, Sputum production, Wheezing, SOB at rest, SOB with exertion - Gastrointestinal Gastrointestinal: reports: Reflux/heartburn. denies: Abdominal distention, Constipation, Diarrhea, Nausea, Vomiting, Coffee grounds emesis - Genitourinary Genitourinary: denies: Dysuria, Frequency, Urgency, Hematuria - Musculoskeletal Musculoskeletal: reports: Muscle pain, Muscle aches - Integumentary Integumentary: denies: Rash, Pruritis, Lesions, Dryness - Neurological Neurological: reports: General weakness. denies: Focal weakness, Headache, Dizziness - Psychiatric Psychiatric: denies: Depression, Anxiety - Endocrine Endocrine: denies: Polyuria, Polydypsia - Hematologic/Lymphatic Hematologic/Lymphatic: denies: Anemia, Bruising, Petechiae Prior Level of Functionality: He is independent of activities of daily living. Exam - Vital Signs Vital Signs: Vital Signs x48h Temp Pulse Resp BP Pulse Ox 07/27/20 18:00 91 32 H 144/81 H 93 07/27/20 17:30 78 25 H 167/99 H 93 07/27/20 17:00 78 38 H 152/92 H 91 L 07/27/20 16:48 95 25 H 154/93 H 93 07/27/20 16:34 38.0 C H 79 21 154/93 H 91 L 07/27/20 16:30 81 25 H 154/93 H 90 L 07/27/20 16:02 101 H 20 150/94 H 86 L 07/27/20 16:00 97 22 139/95 H 07/27/20 15:55 79 27 H 164/94 H 83 L 07/27/20 15:22 91 21 164/96 H 89 L 07/27/20 15:07 38.0 C H 07/27/20 14:49 16 95 07/27/20 14:43 84 8 L 122/76 83 L - Physical Exam General Appearance: positive: Moderate distress, Lethargic Eyes Bilateral: positive: PERRL, EOMI ENT: positive: Dry mucous membranes Neck: positive: No JVD, Trachea midline Respiratory: positive: No respiratory distress, Other (Coarse breath sounds). negative: Chest non-tender, Wheezes, Rales, Rhonchi Cardiovascular: positive: Regular rate & rhythm, No murmur Abdomen: positive: Nml bowel sounds, No distention, Tenderness. negative: Guarding, Rebound Back: positive: Nml inspection Skin: positive: Color nml, No rash, Warm, Dry. negative: Diaphoresis Extremities: positive: Non-tender, Full ROM, Nml appearance, No pedal edema Neurologic/Psychiatric: positive: Oriented x3, Other (Drowsy) Conclusion/Plan - Problem List (1) Rhabdomyolysis Conclusion/Plan: Likely secondary to being in the same position for over 24 hours due to alcohol intoxication. This is probably confounded by dehydration. Patient's creatinine kinase was 34,000. We will continue to trend daily Patient was given 3 L of normal saline bolus in the ED. We will continue IV hydration with normal saline at 150 mils per hour. Qualifiers: Rhabdomyolysis type: non-traumatic Qualified Code(s): M62.82 - Rhabdomyolysis (2) Fever Conclusion/Plan: Patient's temperature at time of exam was 39.1 C. Patient's white blood cell count was 12.8. Etiology undetermined however suspect pneumonia versus bronchitis. Blood cultures pending. Patient also underwent a spinal tap. Analysis pending. Empiric antibiotics: vancomycin and Rocephin. Will continue. Patient's lactic acid was 3.8. Will trend. Qualifiers: Fever type: unspecified Qualified Code(s): R50.9 - Fever, unspecified (3) ARF (acute renal failure) Conclusion/Plan: Creatinine was 3.8. Likely secondary to dehydration and rhabdomyolysis. Anticipating improvement with IV hydration. We will monitor with a.m. labs. Qualifiers: Acute renal failure type: unspecified Qualified Code(s): N17.9 - Acute kidney failure, unspecified (4) Alcoholism Conclusion/Plan: Baseline patient drinks half a bottle of vodka daily. Without alcohol ingestion in 8 hours the patient starts exhibiting alcohol withdrawal symptoms. CIWA protocol ordered. Librium 25 mg p.o. every 8 hours ordered. Banana bag ordered. (5) AMS (altered mental status) Conclusion/Plan: Likely multifactorial Due to alcohol intoxication. Cannot rule out infection. Qualifiers: Altered mental status type: delirium Qualified Code(s): R41.0 - Disorientation, unspecified (6) Elevated liver enzymes Conclusion/Plan: Likely secondary to alcohol./Intoxication. Patient receiving IV hydration. We will continue to monitor. - Lab Results Fish Bones: 07/27/20 14:51 07/27/20 14:51 Core Measures - Anticipated LOS I expect patient to be DC'd or transferred within 96 hours.: Yes - DVT/VTE - Prophylaxis VTE/DVT Device ordered at admit?: Yes VTE/DVT Prophylaxis med ordered at admit?: Yes
[2020-07-27] MEDS: LORazepam 2 MG/ML VIAL IVP PRN ×3 (20:00→23:31)
[2020-07-27] MEDS ORDERED: MULTIVITAMIN 10 ML, FOLIC ACID INJ 1 MG, THIAMINE INJ 100 MG, MAGNESIUM SULFATE 2 GM in... IV SCH ×5 (20:15)
[2020-07-27] MEDS ORDERED: ONDANSETRON 4 MG/2 ML VIAL IVP PRN (20:16)
[2020-07-27] MEDS ORDERED: POTASSIUM CHLORIDE 20 MEQ TABLET PO ONE (20:31)
[2020-07-27] MEDS ORDERED: SODIUM CHLORIDE 0.9% 1,000 ML IV SCH (21:00)
[2020-07-27] MEDS: chlordiazePOXIDE 25 MG CAPSULE PO SCH (21:34)
[2020-07-27] MEDS: SODIUM CHLORIDE FLUSH 0.9% 10 ML SYRINGE IVP SCH (21:47)
[2020-07-27] MEDS: SODIUM CHLORIDE FLUSH 0.9% 10 ML SYRINGE IVP PRN ×3 (21:47→23:31)
[2020-07-27] MEDS: traMADol 50 MG TABLET PO PRN (21:56)
[2020-07-27] MEDS: SODIUM CHLORIDE 0.9% 1,000 ML IV SCH (21:57)
[2020-07-28] MEDS: SODIUM CHLORIDE 0.9% 1,000 ML IV SCH ×3 (04:45→22:53)
[2020-07-28 05:11] LABS: BASOPHILS % (AUTO) 0.3 %; EOSINOPHILS # (AUTO) 0.1 10^3/uL (0.0-0.7); HGB - HEMOGLOBIN 12.8 g/dL (14.0-18.0); LYMPHOCYTES # (AUTO) 0.6 10^3/uL (1.5-3.5); LYMPHOCYTES % (AUTO) 6.4 %; MEAN CORPUSCULAR VOLUME 97.1 fL (80.0-94.0); MONOCYTES # (AUTO) 0.6 10^3/uL (0.0-1.0); MONOCYTES % (AUTO) 6.2 %; NEUTROPHILS # (AUTO) 7.9 10^3/uL (1.5-6.6); NEUTROPHILS % (AUTO) 85.8 %; PLT - PLATELET COUNT 100 10^3/uL (130-450); RED BLOOD COUNT 3.77 10^6/uL (4.70-6.10); RED CELL DISTRIBUTION WIDTH 13.7 % (12.0-15.0); WHITE BLOOD COUNT 9.2 x10^3/uL (4.8-10.8)
[2020-07-28 05:47] LABS: ALBUMIN 3.2 g/dL (3.2-5.5); ALBUMIN/GLOBULIN RATIO 1.2 (1.0-2.2); BILIRUBIN,TOTAL 1.2 mg/dL (0.2-1.0); CALCIUM 6.8 mg/dL (8.5-10.3); CREATININE 4.3 mg/dL (0.6-1.2); TOTAL PROTEIN 5.8 g/dL (6.7-8.2)
[2020-07-28 06:28] LABS: VBG PH 7.412 (7.31-7.41)
[2020-07-28] MEDS: PANTOPRAZOLE 40 MG TABLET PO SCH (06:49)
[2020-07-28] MEDS: chlordiazePOXIDE 25 MG CAPSULE PO SCH ×3 (06:49→21:56)
[2020-07-28] MEDS ORDERED: POTASSIUM CHLORIDE 20 MEQ TABLET PO ONE (07:00)
[2020-07-28] MEDS: SODIUM CHLORIDE FLUSH 0.9% 10 ML SYRINGE IVP PRN ×2 (07:58→19:49)
[2020-07-28] MEDS ORDERED: CALCIUM GLUCONATE 2,000 MG in SODIUM CHLORIDE 0.9% 100ML 100 ML IV ONE (08:30)
[2020-07-28] MEDS: ZINC OXIDE 20% OINT 30 GM TUBE TOP PRN ×8 (08:47→22:00)
[2020-07-28] MEDS ORDERED: cefTRIAXone 1 GM in SODIUM CHLORIDE 0.9% MINIBAG 100 ML IV SCH ×2 (09:00→21:00)
[2020-07-28] MEDS ORDERED: MULTIVITAMIN 10 ML, FOLIC ACID INJ 1 MG, THIAMINE INJ 100 MG, MAGNESIUM SULFATE 2 GM in... IV SCH ×10 (09:00→10:18)
[2020-07-28] MEDS: LORazepam 2 MG/ML VIAL IVP PRN ×6 (09:01→21:57)
[2020-07-28] MEDS: traMADol 50 MG TABLET PO PRN ×2 (10:47→22:00)
[2020-07-28] MEDS: SODIUM CHLORIDE FLUSH 0.9% 10 ML SYRINGE IVP SCH ×4 (10:48→21:57)
[2020-07-28] MEDS ORDERED: VANCOMYCIN INJ 1,250 MG in SODIUM CHLORIDE 0.9% 250 ML IV SCH ×3 (13:00)
[2020-07-28] MEDS: metroNIDAZOLE 500 MG/100 ML 500 MG/100 ML BAG IV SCH (16:08)
[2020-07-28] MEDS: NICOTINE 14 MG PATCH TOP SCH (18:27)
--- NOTE | 2020-07-28 18:48 | PROVIDER PROGRESS NOTE ---
Subjective - Prog Note Date Prog Note Date: 07/28/20 Prog Note Time: 18:46 - Subjective Subjective: Girlfriend at the bedside. He is asleep. He does awaken to voice and light touch. He is on the CIWA protocol because of alcohol withdrawal.She tells me t hat he does not have a primary care provider because "he hates doctors". For some reason he has been drinking more. Although she is known him for many years because they grew up together, she only recently became automatically involved with him in the last 6 months. He wants to smoke. He wants to go outside to do it. Current Medications - Current Medications Current Medications: Active Medications Chlordiazepoxide HCl (Chlordiazepoxide 25 Mg Capsule) 25 mg PO Q8HR [facility] Last Admin: 07/28/20 14:27 Dose: 25 mg Documented by: Sodium Chloride (Normal Saline 0.9%) 1,000 mls @ 150 mls/hr IV .Q6H40M [facility] Last Infusion: 07/28/20 18:27 Dose: 150 mls/hr Documented by: Multivitamins 10 ml/ Folic Acid 1 mg/ Thiamine HCl 100 mg / Magnesium Sulfate 2 gm/Sodium Chloride 1,015.2 mls @ 100 mls/hr IV HS DOMINIK Metronidazole (Flagyl 500 Mg/100 Ml) 500 mg in 100 mls @ 100 mls/hr IV Q8H DOMINIK Last Infusion: 07/28/20 17:10 Dose: Infused Documented by: Ceftriaxone Sodium 2 gm/ (Sodium Chloride) 100 mls @ 200 mls/hr IV BID DOMINIK Lorazepam (Lorazepam 2 Mg/Ml Vial) 1 mg IVP Q30M PRN; Protocol PRN Reason: CIWA >8 Last Admin: 07/28/20 17:33 Dose: 1 mg Documented by: Multi-Ingredient Ointment (Zinc Oxide 20% Oint 30 Gm Tube) 1 applic TOP PRN PRN PRN Reason: Skin Care Last Admin: 07/28/20 17:35 Dose: 1 applic Documented by: Nicotine (Nicotine 14 Mg Patch) 1 patch TOP DAILY DOMINIK Last Admin: 07/28/20 18:27 Dose: 1 patch Documented by: Ondansetron HCl (Ondansetron 4 Mg/2 Ml Vial) 4 mg IVP Q6HR PRN PRN Reason: Nausea / Vomiting Pantoprazole Sodium (Pantoprazole 40 Mg Tablet) 40 mg PO QDAC [facility] Last Admin: 07/28/20 06:49 Dose: 40 mg Documented by: Sodium Chloride (Sodium Chloride Flush 0.9% 10 Ml Syringe) 10 ml IVP 0100,0900,1700 [facility] Last Admin: 07/28/20 17:35 Dose: 10 ml Documented by: Sodium Chloride (Sodium Chloride Flush 0.9% 10 Ml Syringe) 10 ml IVP PRN PRN PRN Reason: NEEDED PER PROVIDER ORDERS Last Admin: 07/28/20 07:58 Dose: 10 ml Documented by: Tramadol HCl (Tramadol 50 Mg Tablet) 50 mg PO Q12H PRN PRN Reason: PAIN Last Admin: 07/28/20 10:47 Dose: 50 mg Documented by: Objective - Vital Signs/Intake & Output Reviewed Vital Signs: Yes Vital Signs: Vital Signs Temp Pulse Resp BP Pulse Ox 07/28/20 18:00 38.7 C H 69 19 163/93 H 97 07/28/20 17:00 38.8 C H 76 26 H 150/76 H 96 07/28/20 16:15 38.6 C H 07/28/20 15:59 38.6 C H 27 H 156/88 H 95 07/28/20 15:00 38.4 C H 67 22 156/88 H 97 Intake & Output: Intake & Output 07/25/20 07/26/20 07/27/20 07/28/20 23:59 23:59 23:59 23:59 Intake Total 5391.000 6742.7 Output Total 50 1424 Balance 5341.000 5318.7 - Objective General Appearance: positive: Lethargic Eyes Bilateral: positive: PERRL ENT: positive: Pharynx nml Neck: positive: No JVD. negative: Stiff neck Respiratory: positive: No respiratory distress, Other (Slow, sonorous, unlabored respiration.). negative: Wheezes, Rales, Rhonchi Cardiovascular: positive: Regular rate & rhythm, Systolic murmur. negative: Gallop/S4, Friction rub Abdomen: positive: Non-tender, No organomegaly, Nml bowel sounds, No distention Skin: positive: Warm, Dry Extremities: positive: No pedal edema Neurologic/Psychiatric: positive: CN's nml (2-12). negative: Motor nml (psychomotor slowing) - Lab Results Fish Bones: 07/28/20 05:01 07/28/20 05:01 Other Labs: Lab Results x24hrs 07/28/20 07/28/20 07/28/20 Range/Units 06:20 05:01 05:01 WBC (4.8-10.8) x10^3/uL RBC (4.70-6.10) 10^6/uL Hgb (14.0-18.0) g/dL Hct (42.0-52.0) % MCV (80.0-94.0) fL MCH (27.0-31.0) pg MCHC (32.0-36.0) g/dL RDW (12.0-15.0) % Plt Count (130-450) 10^3/uL MPV (7.4-11.4) fL Neut # (Auto) (1.5-6.6) 10^3/uL Lymph # (Auto) (1.5-3.5) 10^3/uL Irion # (Auto) (0.0-1.0) 10^3/uL Eos # (Auto) (0.0-0.7) 10^3/uL Baso # (Auto) (0.0-0.1) 10^3/uL Absolute Nucleated RBC x10^3/uL Nucleated RBC % /100WBC VBG pH 7.412 H (7.31-7.41) Ionized Calcium 0.93 L (1.15-1.33) mmol/L Sodium 138 (135-145) mmol/L Potassium 3.3 L (3.5-5.0) mmol/L Chloride 106 (101-111) mmol/L Carbon Dioxide 19 L (21-32) mmol/L Anion Gap 13.0 (6-13) BUN 33 H (6-20) mg/dL Creatinine 4.3 H (0.6-1.2) mg/dL Estimated GFR (MDRD) 16 L (>89) Glucose 135 H (70-100) mg/dL POC Whole Bld Glucose (70 - 100) mg/dL Lactic Acid 1.9 (0.5-2.2) mmol/L Calcium 6.8 L (8.5-10.3) mg/dL Total Bilirubin 1.2 H (0.2-1.0) mg/dL AST 615 H (10-42) IU/L ALT 204 H (10-60) IU/L Alkaline Phosphatase 46 (42-121) IU/L Total Creatine Kinase 24934 H* (22-269) IU/L Total Protein 5.8 L (6.7-8.2) g/dL Albumin 3.2 (3.2-5.5) g/dL Globulin 2.6 (2.1-4.2) g/dL Albumin/Globulin Ratio 1.2 (1.0-2.2) Nasal Screen MRSA (PCR) (NEGATIVE) 07/28/20 07/27/20 07/27/20 Range/Units 05:01 21:29 19:15 WBC 9.2 (4.8-10.8) x10^3/uL RBC 3.77 L (4.70-6.10) 10^6/uL Hgb 12.8 L (14.0-18.0) g/dL Hct 36.6 L (42.0-52.0) % MCV 97.1 H (80.0-94.0) fL MCH 34.0 H (27.0-31.0) pg MCHC 35.0 (32.0-36.0) g/dL RDW 13.7 (12.0-15.0) % Plt Count 100 L (130-450) 10^3/uL MPV 10.0 (7.4-11.4) fL Neut # (Auto) 7.9 H (1.5-6.6) 10^3/uL Lymph # (Auto) 0.6 L (1.5-3.5) 10^3/uL Irion # (Auto) 0.6 (0.0-1.0) 10^3/uL Eos # (Auto) 0.1 (0.0-0.7) 10^3/uL Baso # (Auto) 0.0 (0.0-0.1) 10^3/uL Absolute Nucleated RBC 0.00 x10^3/uL Nucleated RBC % 0.0 /100WBC VBG pH (7.31-7.41) Ionized Calcium (1.15-1.33) mmol/L Sodium (135-145) mmol/L Potassium (3.5-5.0) mmol/L Chloride (101-111) mmol/L Carbon Dioxide (21-32) mmol/L Anion Gap (6-13) BUN (6-20) mg/dL Creatinine (0.6-1.2) mg/dL Estimated GFR (MDRD) (>89) Glucose (70-100) mg/dL POC Whole Bld Glucose (70 - 100) mg/dL Lactic Acid 2.4 H (0.5-2.2) mmol/L Calcium (8.5-10.3) mg/dL Total Bilirubin (0.2-1.0) mg/dL AST (10-42) IU/L ALT (10-60) IU/L Alkaline Phosphatase (42-121) IU/L Total Creatine Kinase (22-269) IU/L Total Protein (6.7-8.2) g/dL Albumin (3.2-5.5) g/dL Globulin (2.1-4.2) g/dL Albumin/Globulin Ratio (1.0-2.2) Nasal Screen MRSA (PCR) NEGATIVE (NEGATIVE) 07/27/20 Range/Units 15:24 WBC (4.8-10.8) x10^3/uL RBC (4.70-6.10) 10^6/uL Hgb (14.0-18.0) g/dL Hct (42.0-52.0) % MCV (80.0-94.0) fL MCH (27.0-31.0) pg MCHC (32.0-36.0) g/dL RDW (12.0-15.0) % Plt Count (130-450) 10^3/uL MPV (7.4-11.4) fL Neut # (Auto) (1.5-6.6) 10^3/uL Lymph # (Auto) (1.5-3.5) 10^3/uL Irion # (Auto) (0.0-1.0) 10^3/uL Eos # (Auto) (0.0-0.7) 10^3/uL Baso # (Auto) (0.0-0.1) 10^3/uL Absolute Nucleated RBC x10^3/uL Nucleated RBC % /100WBC VBG pH (7.31-7.41) Ionized Calcium (1.15-1.33) mmol/L Sodium (135-145) mmol/L Potassium (3.5-5.0) mmol/L Chloride (101-111) mmol/L Carbon Dioxide (21-32) mmol/L Anion Gap (6-13) BUN (6-20) mg/dL Creatinine (0.6-1.2) mg/dL Estimated GFR (MDRD) (>89) Glucose (70-100) mg/dL POC Whole Bld Glucose 145 H (70 - 100) mg/dL Lactic Acid (0.5-2.2) mmol/L Calcium (8.5-10.3) mg/dL Total Bilirubin (0.2-1.0) mg/dL AST (10-42) IU/L ALT (10-60) IU/L Alkaline Phosphatase (42-121) IU/L Total Creatine Kinase (22-269) IU/L Total Protein (6.7-8.2) g/dL Albumin (3.2-5.5) g/dL Globulin (2.1-4.2) g/dL Albumin/Globulin Ratio (1.0-2.2) Nasal Screen MRSA (PCR) (NEGATIVE) Assessment/Plan - Problem List (1) Rhabdomyolysis Impression: This is secondary to a patient who passed out while acutely intoxicated and laying the same position for over 48 hours. Treatment of IV fluids, electrolyte replacement, continue. Initial CPK was 34,081, and he has come down to 24,341 this morning. Continue IV fluids Qualifiers: Rhabdomyolysis type: non-traumatic Qualified Code(s): M62.82 - Rhabdomyolysis (2) Alcohol withdrawal Impression: [facility] protocol. Adequate sedation on this morning's exam Qualifiers: Complication of substance-induced condition: uncomplicated Qualified Code(s): F10.230 - Alcohol dependence with withdrawal, uncomplicated (3) Fever Impression: worry for infection. He's being treated for meningitis and pneumonia. I will increase rocephin to 2 grams bid. Add flagyle for fears of aspiration pneumonia. Qualifiers: Fever type: unspecified Qualified Code(s): R50.9 - Fever, unspecified (4) Diarrhea Impression: c dif to be checked and will add lomotil if needed. Qualifiers: Diarrhea type: unspecified type Qualified Code(s): R19.7 - Diarrhea, unspecified (5) Nicotine dependence with withdrawal Impression: add nicotine patch. Qualifiers: Nicotine product type: cigarettes Qualified Code(s): F17.213 - Nicotine dependence, cigarettes, with withdrawal (6) Hypokalemia Impression: supplement w ICU protocol. (7) JOY (acute kidney injury) Impression: in spite of fluids, he has gotten slig worse. will watch for ATN and post ATN diuresis.
[2020-07-28] MEDS: cefTRIAXone 2 GM in SODIUM CHLORIDE 0.9% MINIBAG 100 ML IV SCH (20:54)
[2020-07-28] MEDS: LOPERAMIDE 2 MG CAPSULE PO PRN (21:56)
[2020-07-29] MEDS: metroNIDAZOLE 500 MG/100 ML 500 MG/100 ML BAG IV SCH ×4 (05:09→23:57)
[2020-07-29 06:04] LABS: BASOPHILS % (AUTO) 0.4 %; EOSINOPHILS % (AUTO) 0.1 %; HGB - HEMOGLOBIN 12.4 g/dL (14.0-18.0); LYMPHOCYTES # (AUTO) 0.9 10^3/uL (1.5-3.5); LYMPHOCYTES % (AUTO) 9.1 %; MEAN CORPUSCULAR HGB CONC 35.9 g/dL (32.0-36.0); MEAN CORPUSCULAR VOLUME 94.5 fL (80.0-94.0); MONOCYTES # (AUTO) 0.5 10^3/uL (0.0-1.0); NEUTROPHILS # (AUTO) 8.5 10^3/uL (1.5-6.6); NEUTROPHILS % (AUTO) 84.9 %; PLT - PLATELET COUNT 96 10^3/uL (130-450); RED BLOOD COUNT 3.65 10^6/uL (4.70-6.10)
[2020-07-29] MEDS: chlordiazePOXIDE 25 MG CAPSULE PO SCH ×3 (06:21→22:03)
[2020-07-29] MEDS: PANTOPRAZOLE 40 MG TABLET PO SCH (06:21)
[2020-07-29] MEDS: SODIUM CHLORIDE 0.9% 1,000 ML IV SCH ×4 (06:21→22:05)
[2020-07-29 06:49] LABS: ALBUMIN/GLOBULIN RATIO 1.2 (1.0-2.2); BILIRUBIN,TOTAL 0.9 mg/dL (0.2-1.0); CALCIUM 7.6 mg/dL (8.5-10.3); CREATININE 2.9 mg/dL (0.6-1.2); TOTAL PROTEIN 5.6 g/dL (6.7-8.2)
--- NOTE | 2020-07-29 08:05 | PROVIDER PROGRESS NOTE ---
Subjective - Prog Note Date Prog Note Date: 07/29/20 Prog Note Time: 08:04 - Subjective Subjective: staying asleep w CIWA and wakes to voice. tells us the main problem is back pain. nursing feels we might get him more to eat if we can advance diet. girl friend is at the bedside. Current Medications - Current Medications Current Medications: Active Medications Chlordiazepoxide HCl (Chlordiazepoxide 25 Mg Capsule) 25 mg PO Q8HR [facility] Last Admin: 07/29/20 06:21 Dose: 25 mg Documented by: Sodium Chloride (Normal Saline 0.9%) 1,000 mls @ 150 mls/hr IV .Q6H40M [facility] Last Admin: 07/29/20 06:27 Dose: Not Given Documented by: Multivitamins 10 ml/ Folic Acid 1 mg/ Thiamine HCl 100 mg / Magnesium Sulfate 2 gm/Sodium Chloride 1,015.2 mls @ 100 mls/hr IV HS [facility] Last Admin: 07/28/20 20:55 Dose: 100 mls/hr Documented by: Metronidazole (Flagyl 500 Mg/100 Ml) 500 mg in 100 mls @ 100 mls/hr IV Q8H [facility] Last Infusion: 07/29/20 06:10 Dose: Infused Documented by: Ceftriaxone Sodium 2 gm/ (Sodium Chloride) 100 mls @ 200 mls/hr IV BID [facility] Last Infusion: 07/28/20 21:25 Dose: Infused Documented by: Loperamide HCl (Loperamide 2 Mg Capsule) 2 mg PO QID PRN PRN Reason: Diarrhea Last Admin: 07/28/20 21:56 Dose: 2 mg Documented by: Lorazepam (Lorazepam 2 Mg/Ml Vial) 1 mg IVP Q30M PRN; Protocol PRN Reason: CIWA >8 Last Admin: 07/28/20 21:57 Dose: 1 mg Documented by: Multi-Ingredient Ointment (Zinc Oxide 20% Oint 30 Gm Tube) 1 applic TOP PRN PRN PRN Reason: Skin Care Last Admin: 07/28/20 22:00 Dose: 1 applic Documented by: Nicotine (Nicotine 14 Mg Patch) 1 patch TOP DAILY [facility] Last Admin: 07/28/20 18:27 Dose: 1 patch Documented by: Ondansetron HCl (Ondansetron 4 Mg/2 Ml Vial) 4 mg IVP Q6HR PRN PRN Reason: Nausea / Vomiting Pantoprazole Sodium (Pantoprazole 40 Mg Tablet) 40 mg PO QDAC [facility] Last Admin: 07/29/20 06:21 Dose: 40 mg Documented by: Potassium Chloride (Potassium Chloride 20 Meq Tablet) 40 meq PO Q4H [facility]; Protocol Stop: 07/29/20 12:01 Sodium Chloride (Sodium Chloride Flush 0.9% 10 Ml Syringe) 10 ml IVP 0100,0900,1700 [facility] Last Admin: 07/28/20 21:57 Dose: 10 ml Documented by: Sodium Chloride (Sodium Chloride Flush 0.9% 10 Ml Syringe) 10 ml IVP PRN PRN PRN Reason: NEEDED PER PROVIDER ORDERS Last Admin: 07/28/20 19:49 Dose: 10 ml Documented by: Tramadol HCl (Tramadol 50 Mg Tablet) 50 mg PO Q12H PRN PRN Reason: PAIN Last Admin: 07/28/20 22:00 Dose: 50 mg Documented by: Objective - Vital Signs/Intake & Output Reviewed Vital Signs: Yes Vital Signs: Vital Signs Temp Pulse Resp BP BP Pulse Ox 07/29/20 07:00 37.8 C 51 L 29 H 164/85 H 92 07/29/20 06:00 37.9 C 53 L 33 H 161/84 H 92 07/29/20 05:00 37.8 C 52 L 27 H 146/78 H 91 L Intake & Output: Intake & Output 07/26/20 07/27/20 07/28/20 07/29/20 23:59 23:59 23:59 23:59 Intake Total 5391.000 7480.2 1700 Output Total 50 1924 960 Balance 5341.000 5556.2 740 - Objective General Appearance: positive: No acute distress, Other (sleeping and wakes to voice. opens eyes, answers yes/no then falls back asleep) Eyes Bilateral: positive: PERRL, EOMI ENT: positive: Pharynx nml Neck: positive: No JVD. negative: Stiff neck Respiratory: positive: No respiratory distress, Other (slow unalbored sonorous respirations). negative: Wheezes, Rales, Rhonchi Cardiovascular: positive: Regular rate & rhythm. negative: Gallop/S4, Friction rub Abdomen: positive: Non-tender, No organomegaly, Nml bowel sounds, No distention Skin: positive: Warm, Dry Extremities: positive: Full ROM, No pedal edema Neurologic/Psychiatric: positive: CN's nml (2-12). negative: Motor nml (slow due to sedation, but no tremors, no tachycardia and BP stable) - Lab Results Fish Bones: 07/29/20 05:34 07/29/20 05:34 Other Labs: Lab Results x24hrs 07/29/20 07/29/20 07/28/20 Range/Units 05:34 05:34 10:00 WBC 10.0 (4.8-10.8) x10^3/uL RBC 3.65 L (4.70-6.10) 10^6/uL Hgb 12.4 L (14.0-18.0) g/dL Hct 34.5 L (42.0-52.0) % MCV 94.5 H (80.0-94.0) fL MCH 34.0 H (27.0-31.0) pg MCHC 35.9 (32.0-36.0) g/dL RDW 13.0 (12.0-15.0) % Plt Count 96 L (130-450) 10^3/uL MPV 11.0 (7.4-11.4) fL Neut # (Auto) 8.5 H (1.5-6.6) 10^3/uL Lymph # (Auto) 0.9 L (1.5-3.5) 10^3/uL [place] # (Auto) 0.5 (0.0-1.0) 10^3/uL Eos # (Auto) 0.0 (0.0-0.7) 10^3/uL Baso # (Auto) 0.0 (0.0-0.1) 10^3/uL Absolute Nucleated RBC 0.00 x10^3/uL Nucleated RBC % 0.0 /100WBC Sodium 136 (135-145) mmol/L Potassium 2.9 L (3.5-5.0) mmol/L Chloride 109 (101-111) mmol/L Carbon Dioxide 17 L (21-32) mmol/L Anion Gap 10.0 (6-13) BUN 30 H (6-20) mg/dL Creatinine 2.9 H (0.6-1.2) mg/dL Estimated GFR (MDRD) 24 L (>89) Glucose 110 H (70-100) mg/dL POC Whole Bld Glucose (70 - 100) mg/dL Calcium 7.6 L (8.5-10.3) mg/dL Total Bilirubin 0.9 (0.2-1.0) mg/dL AST 526 H (10-42) IU/L ALT 190 H (10-60) IU/L Alkaline Phosphatase 45 (42-121) IU/L Total Creatine Kinase 01364 H* (22-269) IU/L Total Protein 5.6 L (6.7-8.2) g/dL Albumin 3.0 L (3.2-5.5) g/dL Globulin 2.6 (2.1-4.2) g/dL Albumin/Globulin Ratio 1.2 (1.0-2.2) Stl C. diff Tox B Gene NEGATIVE (NEGATIVE) 07/27/20 Range/Units 15:24 WBC (4.8-10.8) x10^3/uL RBC (4.70-6.10) 10^6/uL Hgb (14.0-18.0) g/dL Hct (42.0-52.0) % MCV (80.0-94.0) fL MCH (27.0-31.0) pg MCHC (32.0-36.0) g/dL RDW (12.0-15.0) % Plt Count (130-450) 10^3/uL MPV (7.4-11.4) fL Neut # (Auto) (1.5-6.6) 10^3/uL Lymph # (Auto) (1.5-3.5) 10^3/uL [place] # (Auto) (0.0-1.0) 10^3/uL Eos # (Auto) (0.0-0.7) 10^3/uL Baso # (Auto) (0.0-0.1) 10^3/uL Absolute Nucleated RBC x10^3/uL Nucleated RBC % /100WBC Sodium (135-145) mmol/L Potassium (3.5-5.0) mmol/L Chloride (101-111) mmol/L Carbon Dioxide (21-32) mmol/L Anion Gap (6-13) BUN (6-20) mg/dL Creatinine (0.6-1.2) mg/dL Estimated GFR (MDRD) (>89) Glucose (70-100) mg/dL POC Whole Bld Glucose 145 H (70 - 100) mg/dL Calcium (8.5-10.3) mg/dL Total Bilirubin (0.2-1.0) mg/dL AST (10-42) IU/L ALT (10-60) IU/L Alkaline Phosphatase (42-121) IU/L Total Creatine Kinase (22-269) IU/L Total Protein (6.7-8.2) g/dL Albumin (3.2-5.5) g/dL Globulin (2.1-4.2) g/dL Albumin/Globulin Ratio (1.0-2.2) Stl C. diff Tox B Gene (NEGATIVE) Assessment/Plan - Problem List (1) Rhabdomyolysis Impression: This is secondary to a patient who passed out while acutely intoxicated and laying the same position for over 48 hours. Treatment of IV fluids, electrolyte replacement, continue. Initial CPK was 34,081>> 24,341>>13,170 this morning. Continue IV fluids and aim for less than 5 K before discharge. Qualifiers: Rhabdomyolysis type: non-traumatic Qualified Code(s): M62.82 - Rha bdomyolysis (2) Alcohol withdrawal/alcoholic liver disease Impression: [facility] protocol. Adequate sedation continues on this morning's exam with good vital signs. Liver enzymes are going down. Continue to monitor. Change IV multivit to po. Qualifiers: Complication of substance-induced condition: uncomplicated Qualified Code(s): F10.230 - Alcohol dependence with withdrawal, uncomplicated (3) Fever Impression: worry for infection. His temp dropped after 1 am today and no fever since. He's being treated for meningitis and pneumonia. I increased rocephin to 2 grams bid. Added flagyl for fears of aspiration pneumonia on 07/28/20. His blood cultures are negative today as are CSF cultures. Stop the vancomycin. Continue rocephin and flagyl. Qualifiers: Fever type: unspecified Qualified Code(s): R50.9 - Fever, unspecified (4) Diarrhea Impression: c dif negative and I've added lomotil Qualifiers: Diarrhea type: unspecified type Qualified Code(s): R19.7 - Diarrhea, unspecified (5) Nicotine dependence with withdrawal Impression: added nicotine patch 07/28/20. Qualifiers: Nicotine product type: cigarettes Qualified Code(s): F17.213 - Nicotine dependence, cigarettes, with withdrawal (6) Hypokalemia Impression: supplement w ICU protocol. still needing large amounts. (7) JOY (acute kidney injury) Impression: 3.6>> 4.3>> 2.9 this morning. will watch for ATN and post ATN diuresis. (3) Fever Qualifiers: Qualified Code(s): R50.9 - Fever, unspecified
[2020-07-29] MEDS: POTASSIUM CHLORIDE 20 MEQ TABLET PO SCH ×2 (08:53→13:23)
[2020-07-29] MEDS: NICOTINE 14 MG PATCH TOP SCH (08:53)
[2020-07-29] MEDS: SODIUM CHLORIDE FLUSH 0.9% 10 ML SYRINGE IVP SCH ×2 (08:55→16:30)
[2020-07-29] MEDS: cefTRIAXone 2 GM in SODIUM CHLORIDE 0.9% MINIBAG 100 ML IV SCH ×2 (09:55→21:08)
[2020-07-29] MEDS: LOPERAMIDE 2 MG CAPSULE PO PRN ×3 (10:43→22:23)
[2020-07-29 11:53] LABS: VANCOMYCIN,TROUGH 15.5 ug/mL (10.0-20.0)
[2020-07-29] MEDS: ZINC OXIDE 20% OINT 30 GM TUBE TOP PRN ×3 (13:25→22:23)
[2020-07-29] MEDS: traMADol 50 MG TABLET PO PRN (15:31)
[2020-07-29] MEDS: ACETAMINOPHEN 325 MG TABLET PO PRN ×2 (17:33→23:56)
[2020-07-29] MEDS ORDERED: VANCOMYCIN INJ 1.25 GM in SODIUM CHLORIDE 0.9% 500 ML IV SCH (18:00)
[2020-07-30 04:42] LABS: BASOPHILS % (AUTO) 0.3 %; EOSINOPHILS % (AUTO) 0.3 %; HGB - HEMOGLOBIN 11.7 g/dL (14.0-18.0); LYMPHOCYTES % (AUTO) 8.2 %; MEAN CORPUSCULAR HEMOGLOBIN 34.6 pg (27.0-31.0); MEAN CORPUSCULAR HGB CONC 36.6 g/dL (32.0-36.0); MEAN CORPUSCULAR VOLUME 94.7 fL (80.0-94.0); MEAN PLATELET VOLUME 10.8 fL (7.4-11.4); MONOCYTES # (AUTO) 0.5 10^3/uL (0.0-1.0); MONOCYTES % (AUTO) 4.5 %; NEUTROPHILS # (AUTO) 10.5 10^3/uL (1.5-6.6); NEUTROPHILS % (AUTO) 86.2 %; PLT - PLATELET COUNT 103 10^3/uL (130-450); RED BLOOD COUNT 3.38 10^6/uL (4.70-6.10); RED CELL DISTRIBUTION WIDTH 12.9 % (12.0-15.0); WHITE BLOOD COUNT 12.1 x10^3/uL (4.8-10.8)
[2020-07-30 06:00] LABS: ALBUMIN 2.9 g/dL (3.2-5.5); ALBUMIN/GLOBULIN RATIO 1.2 (1.0-2.2); BILIRUBIN,TOTAL 0.9 mg/dL (0.2-1.0); CALCIUM 7.6 mg/dL (8.5-10.3); CREATININE 1.9 mg/dL (0.6-1.2); TOTAL PROTEIN 5.4 g/dL (6.7-8.2)
[2020-07-30] MEDS: ACETAMINOPHEN 325 MG TABLET PO PRN ×3 (06:13→19:51)
[2020-07-30] MEDS: chlordiazePOXIDE 25 MG CAPSULE PO SCH ×3 (06:13→22:25)
[2020-07-30] MEDS: PANTOPRAZOLE 40 MG TABLET PO SCH (06:14)
[2020-07-30] MEDS: SODIUM CHLORIDE FLUSH 0.9% 10 ML SYRINGE IVP SCH ×3 (06:14→16:15)
[2020-07-30] MEDS: SODIUM CHLORIDE 0.9% 1,000 ML IV SCH ×2 (06:14→16:48)
[2020-07-30] MEDS: POTASSIUM CHLORIDE 20 MEQ TABLET PO SCH ×2 (06:35→10:05)
[2020-07-30] MEDS: metroNIDAZOLE 500 MG/100 ML 500 MG/100 ML BAG IV SCH ×2 (08:18→16:48)
[2020-07-30] MEDS: NICOTINE 14 MG PATCH TOP SCH (08:19)
[2020-07-30] MEDS: PRENATAL VITAMIN TABLET PO SCH (08:22)
[2020-07-30] MEDS: LACTOBACILLUS RHAMNOSUS GG CAPSULE PO SCH (08:22)
[2020-07-30] MEDS: cefTRIAXone 2 GM in SODIUM CHLORIDE 0.9% MINIBAG 100 ML IV SCH ×2 (09:39→20:47)
[2020-07-30] MEDS: traMADol 50 MG TABLET PO PRN ×2 (09:39→21:30)
[2020-07-30] MEDS: LOPERAMIDE 2 MG CAPSULE PO PRN ×3 (10:05→20:47)
[2020-07-30] MEDS: THIAMINE 100 MG TABLET PO SCH (10:19)
--- NOTE | 2020-07-30 15:43 | PROVIDER PROGRESS NOTE ---
Subjective - Prog Note Date Prog Note Date: 07/30/20 Prog Note Time: 15:41 - Subjective Subjective: I saw him this morning where his girlfriend was at the bedside. She says that he is slowly getting better. More talkative. More appropriate. I asked him if he had any problems and he said no. But this is when he was first waking up. Later on in the day nursing reports that he is having problems moving his right arm. This is the arm that he lay on when he was unconscious. It is hard to abduct and move around using his shoulder. It is hard to grasp things. Current Medications - Current Medications Current Medications: Active Medications Acetaminophen (Acetaminophen 325 Mg Tablet) 650 mg PO Q4HR PRN PRN Reason: Pain or Fever > 38C (100.4F) Last Admin: 07/30/20 13:55 Dose: 650 mg Documented by: Chlordiazepoxide HCl (Chlordiazepoxide 25 Mg Capsule) 25 mg PO Q8HR [facility] Last Admin: 07/30/20 13:56 Dose: 25 mg Documented by: Sodium Chloride (Normal Saline 0.9%) 1,000 mls @ 150 mls/hr IV .Q6H40M [facility] Last Admin: 07/30/20 06:14 Dose: 150 mls/hr Documented by: Metronidazole (Flagyl 500 Mg/100 Ml) 500 mg in 100 mls @ 100 mls/hr IV Q8H [facility] Last Infusion: 07/30/20 09:20 Dose: Infused Documented by: Ceftriaxone Sodium 2 gm/ (Sodium Chloride) 100 mls @ 200 mls/hr IV BID [facility] [place] Last Infusion: 07/30/20 10:18 Dose: Infused Documented by: Lactobacillus Rhamnosus (Lactobacillus Rhamnosus Gg Capsule) 1 cap PO DAILY [facility] [place] Last Admin: 07/30/20 08:22 Dose: 1 cap Documented by: Loperamide HCl (Loperamide 2 Mg Capsule) 2 mg PO QID PRN PRN Reason: Diarrhea Last Admin: 07/30/20 12:39 Dose: 2 mg Documented by: Lorazepam (Lorazepam 2 Mg/Ml Vial) 1 mg IVP Q30M PRN; Protocol PRN Reason: CIWA >8 Last Admin: 07/28/20 21:57 Dose: 1 mg Documented by: Multi-Ingredient Ointment (Zinc Oxide 20% Oint 30 Gm Tube) 1 applic TOP PRN PRN PRN Reason: Skin Care Last Admin: 07/29/20 22:23 Dose: 1 applic Documented by: Nicotine (Nicotine 14 Mg Patch) 1 patch TOP DAILY [facility] Last Admin: 07/30/20 08:19 Dose: 1 patch Documented by: Ondansetron HCl (Ondansetron 4 Mg/2 Ml Vial) 4 mg IVP Q6HR PRN PRN Reason: Nausea / Vomiting Pantoprazole Sodium (Pantoprazole 40 Mg Tablet) 40 mg PO QDAC [facility] Last Admin: 07/30/20 06:14 Dose: 40 mg Documented by: Multivit/Folic Acid/Iron ( Vitamin Tablet) 1 tab PO DAILYWM [facility] Last Admin: 07/30/20 08:22 Dose: 1 tab Documented by: Sodium Chloride (Sodium Chloride Flush 0.9% 10 Ml Syringe) 10 ml IVP 0100,0900,1700 [facility] Last Admin: 07/30/20 09:00 Dose: 10 ml Documented by: Sodium Chloride (Sodium Chloride Flush 0.9% 10 Ml Syringe) 10 ml IVP PRN PRN PRN Reason: NEEDED PER PROVIDER ORDERS Last Admin: 07/28/20 19:49 Dose: 10 ml Documented by: Thiamine HCl (Thiamine 100 Mg Tablet) 100 mg PO DAILY [facility] [place] Last Admin: 07/30/20 10:19 Dose: 100 mg Documented by: Tramadol HCl (Tramadol 50 Mg Tablet) 50 mg PO Q12H PRN PRN Reason: PAIN Last Admin: 07/30/20 09:39 Dose: 50 mg Documented by: Objective - Vital Signs/Intake & Output Reviewed Vital Signs: Yes Vital Signs: Vital Signs x48h Temp Pulse Pulse Resp BP Pulse Ox 07/30/20 15:00 38.2 C H 81 19 162/98 H 98 07/30/20 14:00 38.1 C H 70 20 159/100 H 94 07/30/20 13:00 65 38 H 167/100 H 95 07/30/20 12:00 67 40 H 167/117 H 95 07/30/20 11:36 37.9 C 82 32 H 95 07/30/20 11:00 37.9 C 72 34 H 157/102 H 95 07/30/20 10:00 37.9 C 65 36 H 163/87 H 94 07/30/20 09:00 37.9 C 68 36 H 163/87 H 95 07/30/20 08:00 37.9 C 82 30 H 169/98 H 97 Intake & Output: Intake & Output 07/27/20 07/28/20 07/29/20 07/30/20 23:59 23:59 23:59 23:59 Intake Total 5391.000 7480.2 6027.7 3080 Output Total 50 1924 2325 1895 Balance 5341.000 5556.2 3702.7 1185 - Objective General Appearance: positive: No acute distress, Alert, Other (sitting up in chair, right arm held close to his side, bearded, dissheveled.) Eyes Bilateral: positive: PERRL ENT: positive: Other (edentulous) Neck: positive: No JVD. negative: Stiff neck Respiratory: positive: No respiratory distress. negative: Wheezes, Rales, Rhonchi Cardiovascular: positive: Regular rate & rhythm, Systolic murmur. negative: Gallop/S4, Friction rub Abdomen: positive: Non-tender, No organomegaly, Nml bowel sounds, No distention Skin: positive: Warm, Dry Extremities: positive: Other (right shoulder pain at posterior joint, arm pit. worse w active ROM but none with passive rom. Can flex/extend at elbow, pronate/supinate at wrist. hand billing specialist in right hand dominant is equal to sl less than left hand billing specialist) Neurologic/Psychiatric: positive: Oriented x3, CN's nml (2-12), Motor nml - Lab Results Fish Bones: 07/30/20 03:55 07/30/20 03:55 Other Labs: Lab Results x24hrs 07/30/20 07/30/20 Range/Units 03:55 03:55 WBC 12.1 H (4.8-10.8) x10^3/uL RBC 3.38 L (4.70-6.10) 10^6/uL Hgb 11.7 L (14.0-18.0) g/dL Hct 32.0 L (42.0-52.0) % MCV 94.7 H (80.0-94.0) fL MCH 34.6 H (27.0-31.0) pg MCHC 36.6 H (32.0-36.0) g/dL RDW 12.9 (12.0-15.0) % Plt Count 103 L (130-450) 10^3/uL MPV 10.8 (7.4-11.4) fL Neut # (Auto) 10.5 H (1.5-6.6) 10^3/uL Lymph # (Auto) 1.0 L (1.5-3.5) 10^3/uL [place] # (Auto) 0.5 (0.0-1.0) 10^3/uL Eos # (Auto) 0.0 (0.0-0.7) 10^3/uL Baso # (Auto) 0.0 (0.0-0.1) 10^3/uL Absolute Nucleated RBC 0.00 x10^3/uL Nucleated RBC % 0.0 /100WBC Sodium 136 (135-145) mmol/L Potassium 2.9 L (3.5-5.0) mmol/L Chloride 109 (101-111) mmol/L Carbon Dioxide 18 L (21-32) mmol/L Anion Gap 9.0 (6-13) BUN 23 H (6-20) mg/dL Creatinine 1.9 H (0.6-1.2) mg/dL Estimated GFR (MDRD) 40 L (>89) Glucose 102 H (70-100) mg/dL Calcium 7.6 L (8.5-10.3) mg/dL Total Bilirubin 0.9 (0.2-1.0) mg/dL AST 379 H (10-42) IU/L ALT 172 H (10-60) IU/L Alkaline Phosphatase 51 (42-121) IU/L Total Creatine Kinase 8306 H* (22-269) IU/L Total Protein 5.4 L (6.7-8.2) g/dL Albumin 2.9 L (3.2-5.5) g/dL Globulin 2.5 (2.1-4.2) g/dL Albumin/Globulin Ratio 1.2 (1.0-2.2) ABX Reporting Has patient been on IV antibiotics over the past 48 hours?: Yes Assessment/Plan - Problem List (1) Rhabdomyolysis Impression: This is secondary to a patient who passed out while acutely intoxicated and laying the same position for over 48 hours. Treatment of IV fluids, electrolyte replacement, continue. Initial CPK was 34,081>> 24,341>>13,170>>8306 this morning. Continue IV fluids and aim for less than 5 K before discharge.Transfer to [facility] status. remove [place]. He is asking when he could go back to work. With his generalized weakness, right arm pain, I think he will be able to go back for 3 weeks. Qualifiers: Rhabdomyolysis type: non-traumatic Qualified Code(s): M62.82 - Rhabdomyolysis (2) Alcohol withdrawal resolving/alcoholic liver disease Impression: [facility] protocol. He is needing almost no sedation. Blood pressure and pulse rate are holding stable. Change all of his medicines to p.o. Transfer to [facility] status. Qualifiers: Complication of substance-induced condition: uncomplicated Qualified Code(s): F10.230 - Alcohol dependence with withdrawal, uncomplicated (3) Fever Impression: worry for infection. His temp dropped after 1 am Yesterday morning then no fever for about 12 hours yesterday. Then started climbing back up again in the afternoon. White cell count was 10. 0 yesterday, and is 12.1 today. There is no cough, he does have a [place] in place. He was being treated for meningitis and pneumonia on admission. I increased rocephin to 2 grams bid. Added flagyl for fears of aspiration pneumonia on 07/28/20. His blood cultures are negative 07/29 as are CSF cultures. I Stopped the vancomycin 07/29 after one dose. Continue rocephin and flagyl. But he continues to have a fever. White cell count is not elevated. He did have groundglass opacities on chest x-ray. Plan: Check CT of chest to make sure not missing anything from [place] x-ray. Qualifiers: Fever type: unspecified Qualified Code(s): R50.9 - Fever, unspecified (4) Diarrhea Impression: c dif negative and I've added lomotil. Since July 29 he has slowed down the frequency of stool. Still present. Qualifiers: Diarrhea type: unspecified type Qualified Code(s): R19.7 - Diarrhea, unspecified (5) Nicotine dependence with withdrawal Impression: added nicotine patch 07/28/20. Qualifiers: Nicotine product type: cigarettes Qualified Code(s): F17.213 - Nicotine dependence, cigarettes, with withdrawal (6) Hypokalemia Impression: supplement w ICU protocol. still needing large amounts. We will continue to check and supplement. (7) JOY (acute kidney injury) Impression: 3.6>> 4.3>> 2.9>>1.9 this morning. will watch for ATN and post ATN diuresis. (8) Right shoulder pain and right arm weakness This is in a patient who would lay on that side of his body for over 24 hours. He may have had axillary injury. Brachial plexus injury. Tendon injury. Plan: Physical therapy evaluation and treatment (3) Fever Qualifiers: Qualified Code(s): R50.9 - Fever, unspecified
[2020-07-30 16:37] LABS: SOURCE CEREBROSPINAL FLUID
--- NOTE | 2020-07-30 16:52 | CT Report ---
PROCEDURE: CHEST WO INDICATIONS: fever, h/o alcohol withdrawal TECHNIQUE: Noncontrast 5 mm thick sections acquired from the pulmonary apices to the posterior costophrenic angl es. 7 mm thick coronal and sagittal MIP reformats were then acquired. For radiation dose reduction, the following was used: automated exposure control, adjustment of mA and/or kV according to patient size. COMPARISON: CT chest 07/27/2020. FINDINGS: Image quality: Excellent. Lungs and pleura: Bilateral patchy groundglass opacities are redemonstrated with a basilar predomina nce in the lower lobes where there are areas of confluence posteriorly associated with consolidation. These are similar in appearance to the prior study and likely represent pneumonia. The distribution is also suggestive of aspiration. In addition, there are a few scattered small bilateral small oval s olid pulmonary nodules. These include food service representative nodules in the right lower lobe on series 4 yoshi ge 174 measuring 6 mm, a 5 mm nodule on image 168, a 6 mm nodule on image 162, and a 5 mm nodule on i mage 151. A food service representative nodule within the left lower lobe measures 4 mm laterally on image 202. A food service representative nodule within the left lingula measures 3 to 4 mm on image 165. Small bilateral pleura l effusions are present with associated compressive atelectasis. There is septal thickening in the caesar ng bases with associated indistinct ground glass opacities compatible with pulmonary edema. No pneumo thorax. The trachea and central airways are patent. Mediastinum: Heart size is normal. No pericardial effusion. No mediastinal adenopathy by size crit eria. Thoracic aorta and central pulmonary arteries are normal in size. Esophagus is normal in nando nael. No hiatal hernia. Bones and chest wall: No suspicious bony lesions. No vertebral body compression fractures. No axil lina or supraclavicular adenopathy by size criteria. Abdomen: Visualized upper abdomen demonstrates hypoattenuation of the liver consistent with fatty in filtration. IMPRESSION: 1. Bilateral patchy groundglass opacities with confluence in the lung bases associated with consolida tion. Findings likely represent pneumonia with the distribution suggestive of aspiration pneumonia. T he overall appearance is similar to the recent prior study. 2. Additional small bilateral solid oval nodules demonstrated measuring up to 6 mm. The findings may also be associated with pneumonia but short-term follow-up is recommended in one to 2 months to demon strate resolution following appropriate therapy if clinically indicated. 3. Small bilateral pleural effusions with associated compressive atelectasis. 4. Mild pulmonary edema. Reviewed by: Alvin Johnson MD on 07/30/2020 4:51 PM PST Approved by: Alvin Johnson MD on 07/30/2020 4:51 PM PST Station ID: [id number]
--- NOTE | 2020-07-30 17:09 | XRAY Report ---
PROCEDURE: Lumbar Spine Complete INDICATIONS: chronic back pain TECHNIQUE: 5 views of the lumbar spine were acquired. COMPARISON: None. FINDINGS: Bones: 5 [id number] vertebrae are present. There is straightening of normal lumbar lordosis. D egenerative endplate changes are noted throughout lumbar spine more prominent at L2-3 and L3-4 levels . No vertebral body compression fractures. No suspicious bony lesions. Oblique views shows no gross pars defects. No significant bony foraminal stenosis. Soft tissues: Overlying bowel gas pattern is normal. No suspicious soft tissue calcifications. IMPRESSION: Mild degenerative disc disease throughout lumbar spine as above. No compression fracture or spondylolisthesis. No pars defect or significant bony foraminal stenosis. Reviewed by: Hayes Concepcion MD on 07/30/2020 5:07 PM PST Approved by: Hayes Concepcion MD on 07/30/2020 5:07 PM PST Station ID: [id number]
[2020-07-31] MEDS: metroNIDAZOLE 500 MG/100 ML 500 MG/100 ML BAG IV SCH ×3 (00:44→16:17)
[2020-07-31] MEDS: SODIUM CHLORIDE FLUSH 0.9% 10 ML SYRINGE IVP SCH ×3 (00:46→16:21)
[2020-07-31] MEDS: SODIUM CHLORIDE 0.9% 1,000 ML IV SCH ×5 (00:46→18:21)
[2020-07-31 05:43] LABS: BASOPHILS # (AUTO) 0.1 10^3/uL (0.0-0.1); BASOPHILS % (AUTO) 0.6 %; EOSINOPHILS # (AUTO) 0.1 10^3/uL (0.0-0.7); EOSINOPHILS % (AUTO) 0.4 %; HGB - HEMOGLOBIN 11.8 g/dL (14.0-18.0); LYMPHOCYTES # (AUTO) 0.8 10^3/uL (1.5-3.5); LYMPHOCYTES % (AUTO) 5.8 %; MEAN CORPUSCULAR HEMOGLOBIN 34.1 pg (27.0-31.0); MEAN CORPUSCULAR HGB CONC 36.4 g/dL (32.0-36.0); MEAN CORPUSCULAR VOLUME 93.6 fL (80.0-94.0); MEAN PLATELET VOLUME 10.1 fL (7.4-11.4); MONOCYTES % (AUTO) 6.6 %; NEUTROPHILS # (AUTO) 12.3 10^3/uL (1.5-6.6); NEUTROPHILS % (AUTO) 85.7 %; PLT - PLATELET COUNT 127 10^3/uL (130-450); RED BLOOD COUNT 3.46 10^6/uL (4.70-6.10); RED CELL DISTRIBUTION WIDTH 12.9 % (12.0-15.0); WHITE BLOOD COUNT 14.4 x10^3/uL (4.8-10.8)
[2020-07-31] MEDS: ACETAMINOPHEN 325 MG TABLET PO PRN (05:53)
[2020-07-31] MEDS: chlordiazePOXIDE 25 MG CAPSULE PO SCH ×3 (05:53→21:47)
[2020-07-31 06:23] LABS: ALBUMIN/GLOBULIN RATIO 1.1 (1.0-2.2); BILIRUBIN,TOTAL 1.1 mg/dL (0.2-1.0); CALCIUM 7.7 mg/dL (8.5-10.3); CREATININE 1.6 mg/dL (0.6-1.2); TOTAL PROTEIN 5.7 g/dL (6.7-8.2)
[2020-07-31] MEDS ORDERED: POTASSIUM CHLOR 10 MEQ/100 ML 10 MEQ/100 ML BAG IV ONE (06:31)
[2020-07-31] MEDS ORDERED: POTASSIUM CHLORIDE 20 MEQ TABLET PO STA (06:31)
[2020-07-31] MEDS: PANTOPRAZOLE 40 MG TABLET PO SCH (06:50)
[2020-07-31] MEDS: traMADol 50 MG TABLET PO PRN (08:58)
[2020-07-31] MEDS: LOPERAMIDE 2 MG CAPSULE PO PRN (08:58)
[2020-07-31] MEDS: NICOTINE 14 MG PATCH TOP SCH (09:00)
[2020-07-31] MEDS: PRENATAL VITAMIN TABLET PO SCH (09:02)
[2020-07-31] MEDS: LACTOBACILLUS RHAMNOSUS GG CAPSULE PO SCH (09:02)
[2020-07-31] MEDS: cefTRIAXone 2 GM in SODIUM CHLORIDE 0.9% MINIBAG 100 ML IV SCH (09:11)
[2020-07-31] MEDS: ZINC OXIDE 20% OINT 30 GM TUBE TOP PRN (09:15)
[2020-07-31] MEDS: THIAMINE 100 MG TABLET PO SCH (09:38)
[2020-07-31] MEDS ORDERED: HYDROmorphone 2 MG TABLET PO PRN (11:07)
[2020-07-31] MEDS: LIDOCAINE PATCH 5% TOP PRN (11:52)
[2020-07-31] MEDS ORDERED: PIPERACILLIN/TAZOBACTAM 3.375 GM in SODIUM CHLORIDE 0.9% MINIBAG 100 ML IV ONE (12:00)
[2020-07-31] MEDS ORDERED: ENOXAPARIN 40 MG/0.4 ML SYRINGE SUBQ SCH (12:00)
[2020-07-31] MEDS ORDERED: LORazepam 2 MG/ML VIAL IVP PRN (12:06)
[2020-07-31] MEDS ORDERED: MORPHINE 2 MG/ML CARPUJECT IVP STA (12:06)
[2020-07-31] MEDS ORDERED: MAGNESIUM SULFATE 2 GRAM 2 GM/50 ML BAG IV ONE (12:11)
[2020-07-31] MEDS ORDERED: LIDOCAINE 2% ABBOJECT 100 MG/5 ML SYRINGE IVP ONE (12:11)
[2020-07-31] MEDS: LORazepam 2 MG/ML VIAL IVP PRN (12:13)
[2020-07-31] MEDS ORDERED: PROPOFOL 200 MG/20 ML VIAL IVP ONE (12:22)
--- NOTE | 2020-07-31 12:37 | XRAY Report ---
PROCEDURE: Chest 1 View X-Ray INDICATIONS: sudden sob and VTach TECHNIQUE: One view of the chest was acquired. COMPARISON: CT chest 07/30/2019. FINDINGS: Surgical changes and devices: None. Lungs and pleura: Small pleural effusion seen on CT yesterday are not well appreciated. No pneumothor ax. Diffuse bilateral patchy airspace opacities. This appears similar to the CT performed yesterday. Mediastinum: Mediastinal contours appear normal. Heart size is normal. Bones and chest wall: No suspicious bony lesions. Overlying soft tissues appear unremarkable. IMPRESSION: Severe diffuse bilateral patchy air space opacities bilaterally. This is most compatible with infecti ous/inflammatory etiology. Overall appears similar. Reviewed by: Jonnie Cole MD on 07/31/2020 11:36 AM [facility] Approved by: Jonnie Cole MD on 07/31/2020 11:36 AM [facility] Station ID: [id number]
[2020-07-31] MEDS: PROPOFOL 500 MG/50 ML 500 MG/50 ML VIAL IV SCH ×4 (12:40→22:01)
[2020-07-31] MEDS ORDERED: SUCCINYLCHOLINE 200 MG/10 ML VIAL ONE (12:44)
[2020-07-31] MEDS ORDERED: KETAMINE 500 MG/10 ML VIAL ONE (12:44)
[2020-07-31] MEDS ORDERED: hydrALAZINE INJ 20 MG/ML VIAL IVP ONE (13:00)
[2020-07-31] MEDS ORDERED: fentaNYL 2,500 MCG in SODIUM CHLORIDE 0.9% 200 ML IV SCH (13:00)
[2020-07-31] MEDS ORDERED: FUROSEMIDE 40 MG/4 ML VIAL IVP STA (13:00)
--- NOTE | 2020-07-31 13:00 | MISCELLANEOUS PROVIDER NOTE ---
Miscellaneous Provider Note - - Note: 40 y/o male alcoholic who drinks heavily has been admitted into the hospital with severe dehydration, rhabdomyolysis, altered mental status and the patient cleared over a 2-day period of time and then began to develop worsening pulmonary function. He was Covid negative on admission and his lung exam has progressed to appearance of ARDS and I was asked by hospitalist to intubate the patient. With ketamine 45mg IV follow by succinyl choline 100mg the patient was intubated with use of a glide scope and a 7.5 tube. Following intubation and inflation of the cuff at 23cm to the lips there is symmetric chest rise, symmetric breath sounds and color change. He continues to have poor oxygen saturation.
--- NOTE | 2020-07-31 14:02 | XRAY Report ---
PROCEDURE: Chest for Line Placement INDICATIONS: POST INTUBATION TECHNIQUE: One view of the chest was acquired. COMPARISON: Chest plain film 07/27/2020, chest CT 07/27/2020. FINDINGS: Surgical changes and devices: Endotracheal tube in normal position, at the medial clavicular head lev el. Esophagogastric tube extends below the imaging margin, at least into the gastric body.. Lungs and pleura: No pleural effusions or pneumothorax. Lungs are worsening in appearance with now dense alveolar consolidation bilaterally with mild preservation of aeration at the upper lobes, left slightly greater than right.. Mediastinum: Mediastinal contours appear normal. Heart size is normal. Bones and chest wall: No suspicious bony lesions. Overlying soft tissues appear unremarkable. IMPRESSION: Significant interval worsening of bilateral dense alveolar consolidation. Heart size within normal li mits. An intravenous line is not identified at this time. Endotracheal and esophagogastric tube posit ioning normal. Reviewed by: Aneesh James MD on 07/31/2020 2:00 PM PST Approved by: Aneesh James MD on 07/31/2020 2:00 PM PST Station ID: [id number]
--- NOTE | 2020-07-31 14:14 | ANESTHESIA PROCEDURE NOTE ---
Anesth Central Line Template - Central Line Central Line Preparation: Consent Obtained, Time out completed, Ultrasound used, Sterile prep and drape Central line location: Right IJ Central line type: Triple lumen Central line catheter tip site resides: Superior vena cava (SVC) Central line aftercare: Chlorhexidine disc placed, Secured, Placement confirmed, No pneumothorax, No complications, Bundle checklist complete, Pt tolerated well
--- NOTE | 2020-07-31 14:29 | XRAY Report ---
PROCEDURE: Abdomen 1 View X-Ray INDICATIONS: no bowel sounds and distended TECHNIQUE: 1 view of the abdomen were acquired. COMPARISON: CT of abdomen and pelvis dated 07/27/2020 FINDINGS: Surgical changes and devices: Anterior tube tip is in the stomach lumen.. Bowel: No pneumoperitoneum. The bowel gas pattern is nonobstructive. Soft tissues: No masses; visualized solid organ contours appear normal in size. No suspicious abdom inal calcifications. Bones: No suspicious bony abnormalities. IMPRESSION: No radiographic evidence of bowel obstruction or gross free air. Reviewed by: Hayes Concepcion MD on 07/31/2020 2:28 PM PST Approved by: Hayes Concepcion MD on 07/31/2020 2:28 PM PST Station ID: [id number]
--- NOTE | 2020-07-31 14:32 | XRAY Report ---
PROCEDURE: Chest for Line Placement INDICATIONS: post central line, waiting for anesthesia TECHNIQUE: One view of the chest was acquired. COMPARISON: Chest radiograph on the same day. FINDINGS: Surgical changes and devices: There is interval intubation, ET tube tip is approximately 6 cm above t he ryan. Right internal jugular central venous catheter tip is in SVC. Enteric tube tip is in stoma ch lumen below the left hemidiaphragm. Lungs and pleura: Extensive airspace opacities are again seen throughout bilateral lung angel with interval slight worsening of aeration compared to earlier study. No significant pleural effusion or g ross pneumothorax. Mediastinum: Mediastinal contours appear normal. Heart size is normal. Bones and chest wall: No suspicious bony lesions. Overlying soft tissues appear unremarkable. IMPRESSION: Tube and line positions as above. Right internal jugular central venous catheter tip is in SVC. Persi stent extensive bilateral pulmonary opacities slightly worsened since earlier study. No gross pneumot horax. Reviewed by: Hayes Concepcion MD on 07/31/2020 2:31 PM PST Approved by: Hayes Concepcion MD on 07/31/2020 2:31 PM PST Station ID: [id number]
[2020-07-31] MEDS ORDERED: SUCCINYLCHOLINE 200 MG/10 ML VIAL IVP ONE (14:38)
[2020-07-31] MEDS ORDERED: KETAMINE 500 MG/10 ML VIAL IVP ONE (14:38)
[2020-07-31 14:56] LABS: ABG BASE EXCESS -6.7 mmol/L (-2.0-3.0); ABG HCO3 17.7 mmol/L (22.0-26.0); ABG OXYGEN SATURATION 96 % (94-98); ABG PCO2 32 mmHg (34-45); ABG PH 7.36 (7.35-7.45); ABG PO2 89 mmHg (80-100); ABG TCO2 18.7 MMOL/L (21.0-29.0); ALLEN TEST POSITIVE
[2020-07-31] MEDS: lisinopriL 5 MG TABLET PO SCH (15:27)
[2020-07-31] MEDS: SODIUM CHLORIDE FLUSH 0.9% 10 ML SYRINGE IVP PRN ×3 (15:43→20:10)
[2020-07-31] MEDS ORDERED: PIPERACILLIN/TAZOBACTAM 3.375 GM in SODIUM CHLORIDE 0.9% MINIBAG 100 ML IV SCH (16:00)
[2020-07-31] MEDS: CHLORHEXIDINE GLUCONATE 15 ML UDC PO SCH ×2 (16:02→21:35)
[2020-07-31 16:19] LABS: C. PNEUMONIAE- RESP PCR PANEL NOT DETECTED
--- NOTE | 2020-07-31 17:31 | PROVIDER PROGRESS NOTE ---
Progress Note July 31, 2020 11:49-14:00 I have spent 2 hours stabilizing the patient. This morning he was seen and doing well. He was recovering from rhabdomyolysis and acute kidney injury. He had been spiking temperatures and had been on initially vancomycin and Rocephin with addition of Flagyl. Once CSF cultures were negative vancomycin was stopped and he was on Rocephin and Flagyl for possible aspiration pneumonitis. He is continued to have intermittent fever spikes. Yesterday I did a CT of the chest and he has groundglass opacities with areas of confluence posteriorly associated with consolidation. Similar in appearance to CT of the chest July 27. Likely representing pneumonia. By noon today the patient was in acute respiratory dist ress. Gradually worsening over the course of 30 minutes. Sitting upright in bed, diffusely diaphoretic, gasping for air, using accessory muscles. After a few minutes of a nonrebreather, the patient was still struggling for air. Initial O2 saturations on a nonrebreather were 9496%. They were dropping to 86%. Respiratory rate was in the 20s and was now in the 40s. Pulse rate was consistently now in the 140s, 150s. Severe hypertension in the 190s to 200 systolic. Repeat chest x-ray showed worsening diffuse white out of his lung. And as such stat CBC, CMP, ABG, chest x-ray, EKG were ordered. I consulted with the emergency room physician who intubated the patient with a glide scope. It still took another 30 minutes of him gradually able to relax with fentanyl, propofol. A respiratory rate of 50 finally came down to the 20s. Repeat chest x-ray just showed the continued ARDS pattern on chest x-ray. ET tube is in place. OG tube is in place. I checked a KUB because of hypoactive bowel sounds and KUB shows no air-fluid levels, no free air. Barraza is draining urine well. I have broadened antibiotics to Zosyn. He is also received Lasix. He initially dropped his blood pressure on the combination of propofol and fentanyl. Both sedatives were stopped and the patient opened his eyes. I have ordered restraints and am resuming propofol and fentanyl. Currently his temperature is 36.3. Heart rate is 98. Blood pressure 108/92. Respirations 20. 90% saturation on the vent. His FiO2 is 100%. Tidal volume 500. PEEP of 10. Pressure support of 10. At this point in ARDS patient becomes beyond the capability of our facility to deliver care. I have asked for a higher level of care transfer. I have contacted [facility] and the transfer iron operator said they should have bed in a few hours and will call me back.
[2020-07-31] MEDS ORDERED: fentaNYL 2,500 MCG/250 ML 2,500 MCG/250 ML BAG IV SCH (18:00)
[2020-07-31 18:16] LABS: BASOPHILS % (AUTO) 0.3 %; EOSINOPHILS % (AUTO) 0.1 %; HGB - HEMOGLOBIN 11.2 g/dL (14.0-18.0); LYMPHOCYTES # (AUTO) 0.9 10^3/uL (1.5-3.5); LYMPHOCYTES % (AUTO) 6.3 %; MEAN CORPUSCULAR HEMOGLOBIN 34.5 pg (27.0-31.0); MEAN CORPUSCULAR HGB CONC 35.8 g/dL (32.0-36.0); MEAN CORPUSCULAR VOLUME 96.3 fL (80.0-94.0); MONOCYTES # (AUTO) 1.1 10^3/uL (0.0-1.0); MONOCYTES % (AUTO) 7.8 %; NEUTROPHILS # (AUTO) 11.5 10^3/uL (1.5-6.6); NEUTROPHILS % (AUTO) 84.7 %; PLT - PLATELET COUNT 129 10^3/uL (130-450); RED BLOOD COUNT 3.25 10^6/uL (4.70-6.10); RED CELL DISTRIBUTION WIDTH 13.5 % (12.0-15.0); WHITE BLOOD COUNT 13.5 x10^3/uL (4.8-10.8)
[2020-07-31 18:24] LABS: ALBUMIN 2.6 g/dL (3.2-5.5); BILIRUBIN,TOTAL 1.2 mg/dL (0.2-1.0); CALCIUM 7.1 mg/dL (8.5-10.3); CREATININE 1.7 mg/dL (0.6-1.2); TOTAL PROTEIN 5.1 g/dL (6.7-8.2)
[2020-07-31] MEDS: PIPERACILLIN/TAZOBACTAM 3.375 GM in SODIUM CHLORIDE 0.9% MINIBAG 100 ML IV SCH (18:58)
[2020-07-31] MEDS ORDERED: ASPIRIN CHEW 81 MG TABLET PO ONE (19:04)
[2020-07-31] MEDS ORDERED: MORPHINE 2 MG/ML CARPUJECT IVP PRN (19:04)
[2020-07-31] MEDS ORDERED: ENOXAPARIN 30 MG/0.3 ML SYRINGE IV ONE (19:04)
[2020-07-31] MEDS ORDERED: ENOXAPARIN 80 MG/0.8 ML SYRINGE SUBQ SCH (20:00)
[2020-07-31 20:17] LABS: MAGNESIUM 2.2 mg/dL (1.7-2.8); PHOSPHORUS 2.8 mg/dL (2.5-4.6)
[2020-07-31 20:20] LABS: VBG PH 7.339 (7.31-7.41)
[2020-07-31] MEDS: POTASSIUM CHLOR 20 MEQ/100 ML 20 MEQ/100 ML BAG IV SCH ×2 (20:37→21:46)
[2020-07-31] MEDS: atenoloL 25 MG TABLET PO SCH (21:47)
[2020-07-31] MEDS: ENOXAPARIN 100 MG/ML SYRINGE SUBQ SCH (21:57)
[2020-07-31] MEDS ORDERED: CALCIUM GLUCONATE 1,000 MG in SODIUM CHLORIDE 0.9% 50 ML IV ONE (23:12)
[2020-08-01] MEDS: metroNIDAZOLE 500 MG/100 ML 500 MG/100 ML BAG IV SCH ×2 (00:47→08:24)
[2020-08-01] MEDS: SODIUM CHLORIDE FLUSH 0.9% 10 ML SYRINGE IVP SCH ×2 (00:53→09:09)
[2020-08-01] MEDS: PROPOFOL 500 MG/50 ML 500 MG/50 ML VIAL IV SCH ×3 (01:41→09:44)
[2020-08-01] MEDS: SODIUM CHLORIDE 0.9% 1,000 ML IV SCH ×2 (02:25→08:59)
[2020-08-01] MEDS: PIPERACILLIN/TAZOBACTAM 3.375 GM in SODIUM CHLORIDE 0.9% MINIBAG 100 ML IV SCH ×2 (03:40→11:29)
[2020-08-01 05:03] LABS: BASOPHILS # (AUTO) 0.1 10^3/uL (0.0-0.1); BASOPHILS % (AUTO) 0.5 %; EOSINOPHILS # (AUTO) 0.2 10^3/uL (0.0-0.7); EOSINOPHILS % (AUTO) 1.5 %; HGB - HEMOGLOBIN 10.7 g/dL (14.0-18.0); LYMPHOCYTES # (AUTO) 1.5 10^3/uL (1.5-3.5); LYMPHOCYTES % (AUTO) 11.7 %; MEAN CORPUSCULAR HEMOGLOBIN 33.5 pg (27.0-31.0); MEAN CORPUSCULAR VOLUME 98.7 fL (80.0-94.0); MEAN PLATELET VOLUME 10.7 fL (7.4-11.4); MONOCYTES # (AUTO) 1.2 10^3/uL (0.0-1.0); MONOCYTES % (AUTO) 9.3 %; NEUTROPHILS # (AUTO) 9.5 10^3/uL (1.5-6.6); NEUTROPHILS % (AUTO) 75.9 %; PLT - PLATELET COUNT 129 10^3/uL (130-450); RED BLOOD COUNT 3.19 10^6/uL (4.70-6.10); RED CELL DISTRIBUTION WIDTH 14.3 % (12.0-15.0); WHITE BLOOD COUNT 12.5 x10^3/uL (4.8-10.8)
[2020-08-01 05:17] LABS: ALBUMIN 2.4 g/dL (3.2-5.5); BILIRUBIN,TOTAL 0.9 mg/dL (0.2-1.0); CALCIUM 7.4 mg/dL (8.5-10.3); CREATININE 1.9 mg/dL (0.6-1.2); MAGNESIUM 1.9 mg/dL (1.7-2.8); PHOSPHORUS 1.8 mg/dL (2.5-4.6); TOTAL PROTEIN 4.8 g/dL (6.7-8.2)
[2020-08-01] MEDS ORDERED: POTASSIUM PHOSPHATE 15 MMOL in SODIUM CHLORIDE 0.9% 250 ML IV ONE (05:28)
[2020-08-01] MEDS: chlordiazePOXIDE 25 MG CAPSULE PO SCH (05:58)
[2020-08-01] MEDS: POTASSIUM CHLOR 20 MEQ/100 ML 20 MEQ/100 ML BAG IV SCH ×2 (06:24→10:22)
[2020-08-01] MEDS ORDERED: PANTOPRAZOLE 40 MG VIAL IVP SCH (07:00)
[2020-08-01] MEDS ORDERED: ATORVASTATIN 40 MG TABLET PO STA (07:10)
[2020-08-01 07:13] LABS: ABG BASE EXCESS -7.2 mmol/L (-2.0-3.0); ABG HCO3 16.9 mmol/L (22.0-26.0); ABG OXYGEN SATURATION 99 % (94-98); ABG PCO2 30 mmHg (34-45); ABG PH 7.37 (7.35-7.45); ABG PO2 139 mmHg (80-100); ABG TCO2 17.9 MMOL/L (21.0-29.0); ALLEN TEST POSITIVE
[2020-08-01] MEDS: LACTOBACILLUS RHAMNOSUS GG CAPSULE PO SCH (08:32)
[2020-08-01] MEDS: PRENATAL VITAMIN TABLET PO SCH (08:33)
[2020-08-01] MEDS: atenoloL 25 MG TABLET PO SCH (08:33)
[2020-08-01] MEDS: CHLORHEXIDINE GLUCONATE 15 ML UDC PO SCH (08:51)
[2020-08-01] MEDS ORDERED: ASPIRIN CHEW 81 MG TABLET PO SCH (09:00)
[2020-08-01] MEDS: NICOTINE 14 MG PATCH TOP SCH (09:07)
[2020-08-01] MEDS: THIAMINE 100 MG TABLET PO SCH (09:11)
[2020-08-01] MEDS: LIDOCAINE PATCH 5% TOP PRN (09:35)
[2020-08-01] MEDS: ZINC OXIDE 20% OINT 30 GM TUBE TOP PRN (09:35)
[2020-08-01] MEDS: lisinopriL 5 MG TABLET PO SCH (09:36)
[2020-08-01] MEDS: ENOXAPARIN 100 MG/ML SYRINGE SUBQ SCH (09:36)
[2020-08-01] MEDS: SODIUM CHLORIDE FLUSH 0.9% 10 ML SYRINGE IVP PRN (10:12)
[2020-08-01 12:03] VITALS: BP 122/84
--- NOTE | 2020-08-01 13:14 | Discharge Plan ---
Discharge Plan Problem Reviewed?: Yes Disposition: 02 Transfer Acute Care Hosp Condition: Critical No Smoking: If you smoke, Please STOP! Call for help.
--- NOTE | 2020-08-01 18:34 | DISCHARGE SUMMARY ---
"Discharge Summary Admit Date: 07/27/20 Discharge Date: 08/01/20 Discharging Provider: Joyce Tena MD Primary Care Provider: he does not have PCP, [facility] Code Status: Attempt Resuscitation Condition at Discharge: Critical Discharge Disposition: 02 Transfer Acute Care Hosp - DIAGNOSES Discharge Diagnoses with Status of Each Condition: 1. NSTEMI 2. Acute respiratory failure with hypoxia 3. Rhabdomyolysis 4. Alcohol withdrawal 5. Alcoholic liver disease 6. Probable aspiration pneumonia 7. Diarrhea, C. difficile negative 8. Nicotine dependence with withdrawal 9. Hypokalemia 10. Acute kidney injury 11. Right shoulder pain 12. Chronic lumbar back pain - HPI History of Present Illness: Patient is a 40-year-old male with history significant for alcohol abuse who was brought in today for altered mental status. He drinks approximately half a bottle of vodka daily. If he goes 8 hours without alcohol consumption he states having alcohol withdrawal symptoms. Yesterday July 26, 2020 he binge drank and slept until 3 PM today. When his friends noted that he was still in the same position as the previous day and tried to wake him, he was very drowsy and difficult to arouse so they brought him to the ED for evaluation. In the ED he was found to have an oxygen saturation of 85% despite 6 L of oxygen via nasal cannula. He had a temperature of 38.7 C, lactic acid 3.8, WBC 12.8, creatinine 3.6, creatinine kinase 34,000, AST 601, ALT 200s. His blood alcohol was 133. He was given Narcan with slight improvement in his clinical status. As a result of the above he was presented for admission for further treatment. The patient received 3 L of IV fluids in the ED and also had lumbar puncture done. By the time of my assessment he was more awake however still somewhat drowsy. He complained of generalized pain. He denied abdominal pain, nausea or vomiting. He reported mild dyspnea. He has no dentition. He reports a history of methamphetamine use but stopped. His last use was 2 years ago. He also uses marijuana but denied any other recreational substance. - Past Medical History Cardiovascular: reports: None Respiratory: reports: None Neuro: reports: None Endocrine/Autoimmune: reports: None GI: reports: GERD : reports: None HEENT: reports: Other Psych: reports: Claustrophobia Musculoskeletal: reports: None Derm: reports: None MRSA Hx?: No Other Past Medical History: Alcohol abuse - Past Surgical History General: reports: Other Ortho: reports: Knee replacement (Left), ACL reconstruction - CONSULTS | PROCEDURES Procedures: 1. 6 chest x-rays. Once done from admission showed him to have no acute cardiopulmonary changes. However as the admission progressed, he had progressive ill-defined airspace opacities. No pneumothorax. Worsening consolidation as the admission went on. 2. Head CT without acute intracranial abnormality 3. Cervical spine CT with no acute cervical spine fracture or dislocation. 4. Chest CT was ill-defined airspace opacities and groundglass opacities scattered in the posterior aspect of bilateral lung angel. 3 mm solid nodule in the posterior aspect of right lower lobe. Granuloma posterior aspect of left lower lobe. 3 to 5 mm nodular densities in the subpleural space of the posterior right lower lobe. Findings represent bilateral lower lobe patchy infiltrates versus contusion. 5. Abdomen pelvis CT with severe hepatic steatosis. Bowel loops normal. A 6 x 1 x 3 0.3 x 4.5 cm cystic structure situated within the inferior portion of the spleen and upper to mid pole left kidney representing exophytic renal cyst versus splenic cyst. 6. Repeat chest CT showed bilateral patchy groundglass opacities similar to appearance from prior study and likely representing pneumonia. Distribution suggestive of aspiration. 7. Lumbar spine x-ray done for chronic back pain showed mild degenerative disc disease no compression fractures or spondylolisthesis. 8. Abdomen x-ray without a radiographic evidence of bowel obstruction or gross free air. 9. Blood cultures without growth 10. CSF culture without growth 11. Central line placed - HOSPITAL COURSE Hospital Course: The patient was treated with aggressive IV hydration upon admission. He was treated his acute kidney failure secondary to rhabdomyolysis. He had a strong history of alcohol abuse. He did go through alcohol withdrawal and required sedation with Librium and Ativan. Because withdrawal was severe, he was in the ICU. He was also treated as possible meningitis because of his obtundation when he first came in. CSF cultures were negative. Antibiotics were then deescalat ed from meningitis to simple aspiration pneumonia in view of his chest x-ray. He was improving in all parameters. Acute kidney failure was improving. CPK was coming down. Electrolyte abnormalities were normalized. He continued to have intermittent burst of fevers. Antibiotics were broadened to Zosyn and Flagyl. On the day he was to be transferred to [facility], he began complaining of alen thomas shortness of breath approximately 1130 or 11:45 in the morning. He quickly deteriorated with severe respiratory failure and hypoxia. He was diaphoretic, saying that he was suffocating and could not breathe. This was a sharp contrast. He was hypertensive, tachycardic. Respiratory rate was up into the 50s at times. He was emergently intubated by ER physician. The first 20 to 30 minutes after intubation were still difficult for him with regards to increased respiratory effort. Initial pulmonary expiratory pressures were in the 50s. After 30 minutes his tachypnea had resolved, FiO2 was slowly coming down to maintain O2 sats. Troponin was ordered with his initial intubation but was not done by the lab until 5 hours later. Initial troponin was over 2000. Our high-sensitivity troponin goes up to 14 to be positive. EKG during the acute event had nonspecific inferolateral ST segment depression but was not diagnostic. Sinus rhythm. He was treated with Lovenox, statin, beta-aide. Chest x-ray now showed complete white out. He was also given Lasix. We asked for a transfer to a higher level of care. [facility] initially accepted the patient but stated we needed to wait for a bed to open up. On the second day, they notified us that there was no bed availability, and we reached out to [facility] in [place]. ICU insulator technician accepted the patient in transfer. At discharge, the patient is temperature 38 2. Pulse 78. Blood pressure 122/ 84. Respirations 20 and he is 94% saturated on FiO2 of 70%. Tidal volume is 500. SIMV. Rate of 20. PIP is in the 20s. PEEP of 5 and pressure support of 5. He is on fentanyl and propofol to keep him sedated. He is a middle-aged white male who looks older than stated age with male pattern baldness. Comfortable on the vent and sedated. Neck is supple. Lungs have coarse rhonchi diffusely, no use of accessory muscles. PMI is normally placed with a regular rate and rhythm. The abdomen is obese, soft, hypoactive bowel sounds. Extremities without edema. Prior to intubation this patient was able to verbalize pain, fear, moving all extremities. He is discharged in critical condition and transferred to [facility]. Greater than 30 minutes was spent coordinating discharge. - ALLERGIES Allergies/Adverse Reactions: Allergies Allergy/AdvReac Type Severity Reaction Status Date / Time bee venom protein (honey bee) Allergy Anaphylaxis Verified 07/27/20 14:57 - MEDICATIONS Home Medications: Ambulatory Orders Medication Instructions Recorded Confirmed Cephalexin [Keflex] 500 mg PO Q6H #28 capsule 11/11/19 - LABS Result Diagrams: 08/01/20 04:50 08/01/20 04:50"
[2020-08-02] MEDS ORDERED: ATORVASTATIN 40 MG TABLET PO SCH (21:00)
== END 2020-08-01 12:40 | disposition short-term general hospital (02) | DRG 557 ==
LOC: EDUNIT# → ED 14:43 → ICU 18:27
PROVIDERS: ADMIT Internal Medicine; ATTEND Specialist
PROC: 0BH17EZ Insertion of Endotracheal Airway into Trachea, Via Natural or Artificial Opening (ICD-10-PCS; principal; 2020-07-31)
PROC: 02HV33Z Insertion of Infusion Device into Superior Vena Cava, Percutaneous Approach (ICD-10-PCS; 2020-07-31)
DX: M62.82 Rhabdomyolysis (principal); J96.01 Acute respiratory failure with hypoxia; I21.4 Non-ST elevation (NSTEMI) myocardial infarction; J69.0 Pneumonitis due to inhalation of food and vomit; N17.9 Acute kidney failure, unspecified; F17.213 Nicotine dependence, cigarettes, with withdrawal; F10.230 Alcohol dependence with withdrawal, uncomplicated; F10.229 Alcohol dependence with intoxication, unspecified; K70.9 Alcoholic liver disease, unspecified; Z78.1 Physical restraint status; M54.9 Dorsalgia, unspecified; M25.511 Pain in right shoulder; K76.0 Fatty (change of) liver, not elsewhere classified; R50.9 Fever, unspecified; E86.0 Dehydration; R41.82 Altered mental status, unspecified; R19.7 Diarrhea, unspecified; E87.6 Hypokalemia; Z20.822 Contact with and (suspected) exposure to COVID-19
CPT/HCPCS: 0202U; 36415; 36600; 51702; 62270; 70450; 71045; 71250; 71260; 72110; 72125; 74018; 74177; 80053; 80202; 80306; 80307; 80320; 80329; 82140; 82330; 82550; 82803; 82945; 83605; 83690; 83735; 84100; 84157; 84484; 85025; 85610; 87040; 87070; 87150; 87205; 87493; 87529; 89051; 93005; 94002; 94003; 96365; 96366; 96367; 96368; 96375; 97161; 99291; 99292; A9270; J0330; J1650; J2060; J3010; J3370; J3411; J7040; Q9967; 94770

== ENCOUNTER 2020-09-09 10:25 | Outpatient (CLI) | payer MEDICAID ==
[2020-09-09 15:43] LABS: BASOPHILS # (AUTO) 0.1 10^3/uL (0.0-0.1); BASOPHILS % (AUTO) 1.3 %; EOSINOPHILS # (AUTO) 0.2 10^3/uL (0.0-0.7); EOSINOPHILS % (AUTO) 2.9 %; HGB - HEMOGLOBIN 12.7 g/dL (14.0-18.0); LYMPHOCYTES # (AUTO) 1.8 10^3/uL (1.5-3.5); LYMPHOCYTES % (AUTO) 23.2 %; MEAN CORPUSCULAR HEMOGLOBIN 33.5 pg (27.0-31.0); MEAN CORPUSCULAR HGB CONC 33.5 g/dL (32.0-36.0); MONOCYTES # (AUTO) 0.5 10^3/uL (0.0-1.0); NEUTROPHILS # (AUTO) 4.9 10^3/uL (1.5-6.6); NEUTROPHILS % (AUTO) 65.3 %; PLT - PLATELET COUNT 247 10^3/uL (130-450); RED BLOOD COUNT 3.79 10^6/uL (4.70-6.10); RED CELL DISTRIBUTION WIDTH 13.2 % (12.0-15.0); WHITE BLOOD COUNT 7.5 x10^3/uL (4.8-10.8)
[2020-09-09 15:54] LABS: ALBUMIN 4.7 g/dL (3.2-5.5); ALBUMIN/GLOBULIN RATIO 1.4 (1.0-2.2); BILIRUBIN,TOTAL 0.4 mg/dL (0.2-1.0); CALCIUM 9.6 mg/dL (8.5-10.3); CREATININE 0.7 mg/dL (0.6-1.2)
== END 2020-09-09 10:26 | disposition home or self-care (01) ==
LOC: LAB.S 10:25
PROVIDERS: ATTEND Internal Medicine
DX: R07.89 Other chest pain (principal)
CPT/HCPCS: 36415; 80053; 85025

== ENCOUNTER 2020-09-24 02:48 | Observation (INO) | payer MEDICAID ==
[2020-09-24] MEDS ORDERED: DEXAMETHASONE 10 MG/ML VIAL IM STA (03:11)
[2020-09-24] MEDS ORDERED: FAMOTIDINE 20 MG TABLET PO STA (03:11)
[2020-09-24] MEDS ORDERED: TRANEXAMIC ACID 1,000 MG in SODIUM CHLORIDE 0.9% 100ML 100 ML IV STA (03:12)
[2020-09-24] MEDS ORDERED: DEXAMETHASONE 10 MG/ML VIAL IVP STA (03:16)
[2020-09-24] MEDS ORDERED: FAMOTIDINE 20 MG/2 ML VIAL IVP STA (03:16)
[2020-09-24] MEDS ORDERED: TRANEXAMIC ACID 1,000 MG/10 ML VIAL ONE (03:31)
[2020-09-24 03:35] LABS: BASOPHILS % (AUTO) 0.4 %; EOSINOPHILS # (AUTO) 0.1 10^3/uL (0.0-0.7); HCT - HEMATOCRIT 41.9 % (42.0-52.0); HGB - HEMOGLOBIN 14.7 g/dL (14.0-18.0); LYMPHOCYTES # (AUTO) 1.9 10^3/uL (1.5-3.5); LYMPHOCYTES % (AUTO) 27.1 %; MEAN CORPUSCULAR HEMOGLOBIN 33.5 pg (27.0-31.0); MEAN CORPUSCULAR HGB CONC 35.1 g/dL (32.0-36.0); MEAN CORPUSCULAR VOLUME 95.4 fL (80.0-94.0); MEAN PLATELET VOLUME 9.2 fL (7.4-11.4); MONOCYTES # (AUTO) 0.4 10^3/uL (0.0-1.0); MONOCYTES % (AUTO) 5.1 %; NEUTROPHILS # (AUTO) 4.6 10^3/uL (1.5-6.6); NEUTROPHILS % (AUTO) 66.1 %; PLT - PLATELET COUNT 190 10^3/uL (130-450); RED BLOOD COUNT 4.39 10^6/uL (4.70-6.10); RED CELL DISTRIBUTION WIDTH 13.2 % (12.0-15.0); WHITE BLOOD COUNT 6.9 x10^3/uL (4.8-10.8)
[2020-09-24 03:47] LABS: ALBUMIN 4.5 g/dL (3.2-5.5); ALBUMIN/GLOBULIN RATIO 1.5 (1.0-2.2); BILIRUBIN,TOTAL 0.8 mg/dL (0.2-1.0); CALCIUM 9.7 mg/dL (8.5-10.3); CREATININE 0.6 mg/dL (0.6-1.2); TOTAL PROTEIN 7.6 g/dL (6.7-8.2)
[2020-09-24] MEDS ORDERED: ONDANSETRON 4 MG/2 ML VIAL IVP STA (03:53)
--- NOTE | 2020-09-24 03:58 | ED Physician Documentation ---
History of Present Illness - Stated complaint Stated Complaint: ALLERGIC REACTION - Chief complaint Chief Complaint: Allergic Rx - History obtained from History obtained from: Patient - Additonal information Additional information: 40-year-old man with past medical history of heart attack, just started on lisinopril 1 month prior, presents with angioedema starting late this evening. Patient states that he is allergic only to bee stings and does not think that he was stung by anything recently. He was working outside yesterday but did not notice any bites. This year he developed facial rash, lip swelling and eye swelling waking him from sleep. He took 50 mg of oral Benadryl prior to arrival with some improvement in symptoms. Denies nausea, lightheadedness, shortness of breath, chest pain, headache. Does endorse some blurring of vision secondary to swelling. Review of Systems Ten Systems: 10 systems reviewed and negative Constitutional: denies: Fever, Chills Eyes: reports: Decreased vision Throat: reports: Other (throat tightness, lip swelling) Cardiac: denies: Chest pain / pressure Respiratory: denies: Dyspnea GI: denies: Nausea Neurologic: denies: Near syncope, Headache PD PAST MEDICAL HISTORY - Past Medical History Cardiovascular: None Respiratory: None Neuro: None Endocrine/Autoimmune: None GI: GERD : None HEENT: Other Psych: Claustrophobia Musculoskeletal: None Derm: None - Past Surgical History Past Surgical History: No General: Other Ortho: Knee replacement, ACL reconstruction - Present Medications Home Medications: Ambulatory Orders Medication Instructions Recorded Confirmed Apixaban [Eliquis] 5 mg PO BID 09/24/20 09/24/20 Gabapentin [Neurontin] 100 mg PO BID 09/24/20 09/24/20 Lisinopril [Prinivil] 5 mg PO 09/24/20 Metoprolol Succinate [Kapspargo 25 mg PO 09/24/20 Sprinkle] traZODone [Desyrel] 50 mg PO HS 09/24/20 09/24/20 - Allergies Allergies/Adverse Reactions: Allergies Allergy/AdvReac Type Severity Reaction Status Date / Time bee venom protein (honey bee) Allergy Anaphylaxis Verified 09/24/20 03:01 - Social History Does the pt smoke?: Yes Smoking Status: Current every day smoker Does the pt drink ETOH?: Yes ETOH Use: Liquor Does the pt have substance abuse?: No Substance Use and Type: Marijuana - Immunizations Immunizations are current?: No Immunizations: TDAP >10years/unknown - POLST Patient has POLST: No POLST Status: Full Code PD ED PE NORMAL - Vitals Vital signs reviewed: Yes - General General: Alert and oriented X 3, No acute distress, Well developed/nourished, Other (significant facial edema) - HEENT HEENT: Atraumatic, PERRL, EOMI (BL periorbital edema), Moist mucous membranes, Other (mild uvular enlargement. upper and lower lip swelling present. ) - Neck Neck: Other (good airflow on auscultation of upper airways) - Cardiac Cardiac: RRR - Respiratory Respiratory: No respiratory distress, Clear bilaterally - Abdomen Abdomen: Non tender, Non distended - Derm Derm: Other (mild erythematous rash to forehead) - Extremities Extremities: No edema - Neuro Neuro: Alert and oriented X 3 - Psych Psych: Normal mood, Normal affect Results - Vitals Vitals: Vital Signs - 24 hr 09/24/20 02:51 Temperature 36.8 C Heart Rate 88 Respiratory 20 Rate Blood Pressure 133/92 H O2 Saturation 98 Oxygen O2 Source Room air - Labs Labs: Laboratory Tests 09/24/20 09/24/20 03:29 03:29 WBC 6.9 RBC 4.39 L Hgb 14.7 Hct 41.9 L MCV 95.4 H MCH 33.5 H MCHC 35.1 RDW 13.2 Plt Count 190 MPV 9.2 Neut # (Auto) 4.6 Lymph # (Auto) 1.9 Fleming # (Auto) 0.4 Eos # (Auto) 0.1 Baso # (Auto) 0.0 Absolute Nucleated RBC 0.00 Nucleated RBC % 0.0 Sodium 139 Potassium 3.0 L Chloride 97 L Carbon Dioxide 28 Anion Gap 14.0 H BUN 9 Creatinine 0.6 Estimated GFR (MDRD) 151 Glucose 124 H Calcium 9.7 Total Bilirubin 0.8 AST 53 H ALT 35 Alkaline Phosphatase 60 Total Protein 7.6 Albumin 4.5 Globulin 3.1 Albumin/Globulin Ratio 1.5 PD MEDICAL DECISION MAKING - ED course ED course: 40-year-old man presents with apparent ANA M inhibitor induced angioedema. He is endorsing improving facial swelling s/p benadryl. Will treat with pepcid, decadron, txa, continue to monitor. 4am- patient vomiting. zofran ordered. reevaluated airway and uvula swelling appears to be improving. facial rash resolved. still with periorbital and lip swelling. 4:30am - d/w Dr. Lazo for admission for airway monitoring. patient resting comfortably in bed. still with periorbital/lip swelling, somewhat improved. Departure - Departure Disposition: 66 [facility] DC/Xfer Clinical Impression: Angioedema Condition: Stable
[2020-09-24] MEDS ORDERED: SODIUM CHLORIDE FLUSH 0.9% 10 ML SYRINGE IVP PRN (04:59)
[2020-09-24] MEDS ORDERED: ONDANSETRON 4 MG/2 ML VIAL IVP PRN (04:59)
[2020-09-24] MEDS ORDERED: SODIUM CHLORIDE 0.9% 1,000 ML IV SCH (05:00)
[2020-09-24] MEDS ORDERED: LORazepam 2 MG/ML VIAL IVP PRN (05:05)
[2020-09-24] MEDS ORDERED: diphenhydrAMINE INJ 50 MG/ML VIAL IVP PRN (05:20)
--- NOTE | 2020-09-24 05:21 | HISTORY & PHYSICAL EXAMINATION ---
Chief Complaint - Chief Complaint Chief Complaint: facial swelling, itching eyes History of Present Illness - Admitted From Admitted From:: [facility] ED - History Obtained From Records Reviewed: yes History obtained from: patient - History of Present Illness HPI Comment/Other: Patient is a 40-year-old male with medical history significant for alcohol abuse, history of methamphetamine use and coronary artery disease with recent PR in July 2020 who presents to the ED with facial swelling. He first noticed his symptoms around 1:30 AM. He was woken up from sleep due to his eyes itching. He noticed his face was swollen when he went to the bathroom to look at his face in the mirror. He took 50 mg of Benadryl p.o. and presented to the ED. He reported a similar occurrence 2 years ago after a bee sting. Following his PR in July 2020, he was started on lisinopril 5 mg p.o. daily whch he has been taking. In the ED he was given a dose of Decadron and a dose of tranexamic acid IV. He became nauseous and vomited shortly after the administration of tranexamic acid. At bedside he is resting comfortably. He still has significant swelling of his face especially his eyes and lips. He has significant urticaria rash on his forehead His uvula is appreciable on examination. He does not have any dyspnea or hypoxia. His speech is clear. He denies chest pain, abdominal pain, fever or chills. He reports a feeling of heartburn. As a result of his symptoms he was presented for admission for closer monitoring and treatment. History - Past Medical History Cardiovascular: reports: Coronary artery disease, PR Respiratory: reports: None Neuro: reports: None Endocrine/Autoimmune: reports: None GI: reports: GERD : reports: None HEENT: reports: Other Psych: reports: Claustrophobia Musculoskeletal: reports: None Derm: reports: None MRSA Hx?: No - Past Surgical History General: reports: Other Ortho: reports: Knee replacement, ACL reconstruction - Family & Social History Family History: Mother: Cancer (Breast cancer) Social History Notes: It appears he lives with his girlfriend. He drinks at least half a bottle of vodka daily. He smokes marijuana. He has a history of methamphetamine use but reports stopping 2 years ago. - POLST Patient has POLST: No POLST Status: Full Code Meds/Allgy - Home Medications Home Medications: Ambulatory Orders Medication Instructions Recorded Confirmed Apixaban [Eliquis] 5 mg PO BID 09/24/20 09/24/20 Gabapentin [Neurontin] 100 mg PO BID 09/24/20 09/24/20 Lisinopril [Prinivil] 5 mg PO 09/24/20 Metoprolol Succinate [Kapspargo 25 mg PO 09/24/20 Sprinkle] traZODone [Desyrel] 50 mg PO HS 09/24/20 09/24/20 - Allergies Allergies/Adverse Reactions: Allergies Allergy/AdvReac Type Severity Reaction Status Date / Time bee venom protein (honey bee) Allergy Anaphylaxis Verified 09/24/20 03:01 Review of Systems - Constitutional Constitutional: reports: Other (facial swelling). denies: Fatigue, Fever, Chills - Eyes Eyes: denies: Pain - Ears, Nose & Throat Ears, Nose & Throat: denies: Ear pain, Sore throat, Hoarseness - Cardiovascular Cariovascular: denies: Irregular heart rate, Chest pain, Edema, Lightheadedness, Syncope, Exertional dyspnea, Decr. exercise tolerance - Respiratory Respiratory: denies: Cough, Sputum production, Wheezing, SOB at rest, SOB with exertion - Gastrointestinal Gastrointestinal: denies: Abdominal pain, Abdominal distention, Constipation, Diarrhea, Nausea, Vomiting, Coffee grounds emesis, Reflux/heartburn - Genitourinary Genitourinary: denies: Dysuria, Frequency, Urgency - Musculoskeletal Musculoskeletal: denies: Muscle pain, Back pain, Muscle aches - Integumentary Integumentary: reports: Rash (urticarial rash), Pruritis (eyed) - Neurological Neurological: denies: General weakness, Headache, Dizziness - Psychiatric Psychiatric: denies: Depression, Anxiety - Endocrine Endocrine: denies: Polyuria, Polydypsia - Hematologic/Lymphatic Hematologic/Lymphatic: denies: Anemia, Bruising, Petechiae Prior Level of Functionality: He is independent of activities of daily living. Exam - Vital Signs Vital Signs: Vital Signs x48h Temp Pulse Resp BP Pulse Ox 09/24/20 02:51 36.8 C 88 20 133/92 H 98 - Physical Exam General Appearance: positive: No acute distress, Alert Eyes Bilateral: positive: PERRL, EOMI, Other (eyelids swollen and itchy) ENT: positive: Pharynx nml, Other (uvula midline) Neck: positive: No JVD, Trachea midline Respiratory: positive: Chest non-tender, No respiratory distress, Breath sounds nml. negative: Wheezes, Rales, Rhonchi Cardiovascular: positive: Regular rate & rhythm, No murmur Abdomen: positive: Non-tender, No organomegaly, Nml bowel sounds, No distention. negative: Guarding, Rebound Back: positive: Nml inspection Skin: positive: Skin rash (urticarial rash on forehead) Extremities: positive: Non-tender, Full ROM, Nml appearance, No pedal edema Neurologic/Psychiatric: positive: Oriented x3, CN's nml (2-12), Mood/affect nml Conclusion/Plan - Problem List (1) Angioedema Conclusion/Plan: Likely secondary to lisinopril. Will discontinue. Patient was given a dose of Decadron 10 mg IV x1 in the ED. He also received a dose of tranexamic acid IV X1 Benadryl 25 mg IV every 6 hours as needed ordered. Patient admitted to the ICU for closer monitoring. (2) Coronary artery disease Conclusion/Plan: Patient had an PR in July 2020. This is suspected to be related to history of methamphetamine use and smoking. Patient reports he has not used methamphetamine in about 2-1/2 years. Patient is on Eliquis 5 mg p.o. twice daily and metoprolol succinate 25 mg p.o. daily We will discontinue patient's lisinopril. Patient is not on a statin. (3) GERD (gastroesophageal reflux disease) Conclusion/Plan: Patient was given famotidine in the ED. We will order Protonix. (4) Alcoholism Conclusion/Plan: History of alcohol withdrawal in the past. CIWA protocol ordered. (5) Hypokalemia Conclusion/Plan: 40 mEq of potassium chloride IV has been ordered to be administered over 4 hours. Magnesium sulfate 2 g IV x1 ordered. - Lab Results Fish Bones: 09/24/20 03:29 09/24/20 03:29 Core Measures - Anticipated LOS I expect patient to be DC'd or transferred within 96 hours.: Yes - DVT/VTE - Prophylaxis VTE/DVT Device ordered at admit?: Yes VTE/DVT Prophylaxis med ordered at admit?: Yes
[2020-09-24] MEDS ORDERED: MAGNESIUM SULFATE 2 GRAM 2 GM/50 ML BAG IV ONE (05:23)
[2020-09-24] MEDS: POTASSIUM CHLOR 10 MEQ/100 ML 10 MEQ/100 ML BAG IV SCH ×4 (06:26→09:40)
[2020-09-24] MEDS: chlordiazePOXIDE 25 MG CAPSULE PO SCH ×2 (06:48→14:34)
[2020-09-24] MEDS ORDERED: PANTOPRAZOLE 40 MG TABLET PO SCH (07:00)
[2020-09-24 08:05] LABS: CORONAVIRUS 229E-RESP PCR NOT DETECTED; CORONAVIRUS HKU1-RESP PCR NOT DETECTED; CORONAVIRUS NL63-RESP PCR NOT DETECTED; CORONAVIRUS OC43-RESP PCR NOT DETECTED; HUMAN METAPNEUMOVIRUS NOT DETECTED; INFLUENZA A- RESP PCR PANEL NOT DETECTED; INFLUENZA B - RESP PCR PANEL NOT DETECTED; PARAINFLUENZA VIRUS 1 NOT DETECTED; PARAINFLUENZA VIRUS 2 NOT DETECTED; PARAINFLUENZA VIRUS 3 NOT DETECTED; RHINOVIRUS/ENTEROVIRUS NOT DETECTED; SARS-CoV-2 -RESP PCR PANEL NOT DETECTED
[2020-09-24 08:06] LABS: B. PARAPERTUSSIS- RESP PCR PAN NOT DETECTED; B. PERTUSSIS- RESP PCR PANEL NOT DETECTED; C. PNEUMONIAE- RESP PCR PANEL NOT DETECTED; M. PNEUMONIAE- RESP PCR PANEL NOT DETECTED; PARAINFLUENZA VIRUS 4 NOT DETECTED; RSV- RESP PCR PANEL NOT DETECTED
[2020-09-24 08:21] VITALS: BP 114/75
[2020-09-24] MEDS ORDERED: SODIUM CHLORIDE FLUSH 0.9% 10 ML SYRINGE IVP SCH (09:00)
--- NOTE | 2020-09-24 11:37 | PHARMACY PROGRESS NOTE ---
- Best Possible Medication History Admit Date and Time: 09/24/20 0459 Processed by: Pharmacy Medication History completed: Yes Patient Interview: Completed Secondary Source(s): Physician records, Pharmacy records (PATIENT INTERVIEWED BY PHARMACY. PATIENT ABLE TO CONFIRM HOME MEDICATIONS. PATIENT UNSURE ABOUT TAKING METOPROLOL ), Insurance records As the person ultimately responsible for medication therapy, providers are able to order a medication from an existing home medication list in [facility] via the "Reconcile Routine" prior to Confirmation of that medication by child support specialist. Such practice is discouraged except when the physician, in their clinical judgment, deems that a medical need exists for a medication without regard to previous use.
--- NOTE | 2020-09-24 14:04 | Discharge Plan ---
Discharge Plan Problem Reviewed?: Yes Disposition: Home, Self Care Condition: Stable Diet: Cardiac Activity Restrictions: Activity as Tolerated Shower Restrictions: No Driving Restrictions: No Health Concerns: You presented to the hospital with face swelling. Unfortunately you had a heart attack in July of this year and got put on quite a few new medicine including a drug called lisinopril. Lisinopril has a 13% risk of causing a tickle in your throat with a dry cough. It also has an even rarer side effect called angioneurotic edema. Your face, lips, nose, ears, and eyelids were all swollen with this angioneurotic edema. It is not an allergy. It is a completely different immune system reaction than an allergy. You were placed in observation overnight in our intensive care unit. You do not need life support. Your throat remained open at all times. Your facial swelling has gone down enough that you can go home. Plan of Treatment: 1. Please see your primary care provider in follow-up. Because we had to stop the lisinopril, your regular doctor and your manager bench may have to give you a different pill. 2. For the future, remember the phrase angioneurotic edema. That means you cannot take any drugs called ANA M inhibitors or ARB blockers. Always let your doctors know that you cannot take this medicine. 3. The effects of this blood pressure pill, lisinopril, can take months if not a year to go away. So even though you have stopped the pill, this reaction of angioneurotic edema can happen again before it finally leaves your system. Care Goals: To have your blood pressure control with new medication and not have to worry about a medication reaction Assessment: Patient understands plan, will follow through with his primary care provider No Smoking: If you smoke, Please STOP! Call for help. Follow-up with: Ken Webber MD [Primary Care Provider] -
--- NOTE | 2020-09-24 14:10 | DISCHARGE SUMMARY ---
Discharge Summary Admit Date: 09/24/20 Discharge Date: 09/24/20 Discharging Provider: Joyce Tena MD Primary Care Provider: Ken Webber MD Code Status: Attempt Resuscitation Condition at Discharge: Stable Discharge Disposition: 01 Home, Self Care - DIAGNOSES Discharge Diagnoses with Status of Each Condition: 1. Angioedema, resolved 2. Coronary artery disease 3. Gastroesophageal reflux disease 4. Alcoholism 5. Hypokalemia - HPI History of Present Illness: Please see dictated history and physical and the patient was just admitted a few hours ago - HOSPITAL COURSE Hospital Course: Patient was placed in the ICU to make sure there is no further worsening of his angioedema that would compromise throat or airway. Over the course of the day his lip edema resolved, most of his nasolabial fold edema resolved, and he continues to have significant periorbital edema. He is ambulating in the room, oxygenating normally, swallowing normally, and has no respiratory distress. He would like to go home. On the morning of discharge his potassium was supplemented with oral potassium. On examination he is an alert oriented white male with male pattern baldness, lo oks older than stated age. Temperature is 36.8. Pulse is 87. Blood pressure 114/75. Respirations 19-24. 97% on room air. He has not gone through alcohol withdrawal. Neck is supple. There is no stridor. Tongue is normal size and there is no edema. His lip edema has completely resolved from this morning. Nares and nasolabial fold edema has resolved by 50%. Periorbital edema is still as severe as it was this morning. His ears are also involved as well. He is discharged in stable condition. He is going to have to stop his lisinopril. Because of his heart disease, I am asking him to see his primary care provider in follow-up and see if they want to substitute lisinopril with something else. I did explain to him that sometimes this reaction can occur months after the offending agent has been stopped. He will may need to come back to the emergency room again. He also may need to have his potassium checked with his primary care provider office at his follow-up visit. - ALLERGIES Allergies/Adverse Reactions: Allergies Allergy/AdvReac Type Severity Reaction Status Date / Time bee venom protein (honey bee) Allergy Anaphylaxis Verified 09/24/20 03:01 - MEDICATIONS Home Medications: Ambulatory Orders Medication Instructions Recorded Confirmed Apixaban [Eliquis] 5 mg PO BID 09/24/20 09/24/20 Gabapentin [Neurontin] 300 mg PO BID 09/24/20 09/24/20 Metoprolol Succinate [Toprol Xl] 25 mg PO DAILY 09/24/20 Nitroglycerin [Nitrostat] 0.4 mg PO Q5MIN PRN 09/24/20 09/24/20 traZODone [Desyrel] 50 mg PO HS PRN 09/24/20 09/24/20 - LABS Result Diagrams: 09/24/20 03:29 09/24/20 03:29
== END 2020-09-24 14:45 | disposition home or self-care (01) ==
LOC: ED 02:48 → ICU 04:59
PROVIDERS: ADMIT Internal Medicine; ATTEND Specialist
DX: T78.3XXA Angioneurotic edema, initial encounter (principal); T46.4X5A Adverse effect of angiotensin-converting-enzyme inhibitors, initial encounter; Y92.009 Unspecified place in unspecified non-institutional (private) residence as the place of occurrence of the external cause; I25.10 Atherosclerotic heart disease of native coronary artery without angina pectoris; K21.9 Gastro-esophageal reflux disease without esophagitis; F10.20 Alcohol dependence, uncomplicated; E87.6 Hypokalemia; I25.2 Old myocardial infarction; F17.200 Nicotine dependence, unspecified, uncomplicated; Z20.822 Contact with and (suspected) exposure to COVID-19
CPT/HCPCS: 0202U; 36415; 80053; 85025; 86160; 87150; 96365; 96366; 96367; 96368; 96375; 99284; 99285; A9270; G0378; J1200

== ENCOUNTER 2020-10-19 16:04 | Outpatient (CLI) | payer MEDICAID ==
[2020-10-19 19:44] LABS: BASOPHILS # (AUTO) 0.1 10^3/uL (0.0-0.1); BASOPHILS % (AUTO) 0.9 %; EOSINOPHILS # (AUTO) 0.1 10^3/uL (0.0-0.7); EOSINOPHILS % (AUTO) 1.1 %; HCT - HEMATOCRIT 39.1 % (42.0-52.0); HGB - HEMOGLOBIN 13.3 g/dL (14.0-18.0); LYMPHOCYTES # (AUTO) 1.9 10^3/uL (1.5-3.5); LYMPHOCYTES % (AUTO) 23.1 %; MEAN CORPUSCULAR HEMOGLOBIN 33.8 pg (27.0-31.0); MEAN CORPUSCULAR VOLUME 99.2 fL (80.0-94.0); MEAN PLATELET VOLUME 10.2 fL (7.4-11.4); MONOCYTES # (AUTO) 0.5 10^3/uL (0.0-1.0); MONOCYTES % (AUTO) 6.3 %; NEUTROPHILS # (AUTO) 5.6 10^3/uL (1.5-6.6); NEUTROPHILS % (AUTO) 68.4 %; PLT - PLATELET COUNT 174 10^3/uL (130-450); RED BLOOD COUNT 3.94 10^6/uL (4.70-6.10); RED CELL DISTRIBUTION WIDTH 14.4 % (12.0-15.0); WHITE BLOOD COUNT 8.1 x10^3/uL (4.8-10.8)
[2020-10-19 20:02] LABS: ALBUMIN 4.3 g/dL (3.2-5.5); ALBUMIN/GLOBULIN RATIO 1.4 (1.0-2.2); BILIRUBIN,TOTAL 0.4 mg/dL (0.2-1.0); CALCIUM 8.8 mg/dL (8.5-10.3); CREATININE 0.7 mg/dL (0.6-1.2); MAGNESIUM 1.2 mg/dL (1.7-2.8); POTASSIUM 2.8 mmol/L (3.5-5.0); TOTAL PROTEIN 7.3 g/dL (6.7-8.2)
== END 2020-10-19 16:05 | disposition home or self-care (01) ==
LOC: LAB.S 16:04
PROVIDERS: ATTEND Internal Medicine
DX: E87.6 Hypokalemia (principal); D64.9 Anemia, unspecified
CPT/HCPCS: 36415; 80053; 83735; 85025

== ENCOUNTER 2020-11-21 09:32 | Outpatient (CLI) | payer MEDICAID ==
[2020-11-21 15:33] LABS: ALBUMIN 4.2 g/dL (3.2-5.5); ALBUMIN/GLOBULIN RATIO 1.4 (1.0-2.2); BILIRUBIN,TOTAL 0.8 mg/dL (0.2-1.0); CALCIUM 8.8 mg/dL (8.5-10.3); CREATININE 0.7 mg/dL (0.6-1.2); MAGNESIUM 1.8 mg/dL (1.7-2.8); POTASSIUM 3.5 mmol/L (3.5-5.0); TOTAL PROTEIN 7.1 g/dL (6.7-8.2)
== END 2020-11-21 09:33 | disposition home or self-care (01) ==
LOC: LAB.S 09:32
PROVIDERS: ATTEND Internal Medicine
DX: E87.6 Hypokalemia (principal)
CPT/HCPCS: 36415; 80053; 83735

== ENCOUNTER 2021-04-05 21:27 | Emergency (ER) | payer MEDICAID ==
[2021-04-05 22:11] LABS: BASOPHILS # (AUTO) 0.1 10^3/uL (0.0-0.1); BASOPHILS % (AUTO) 1.7 %; EOSINOPHILS # (AUTO) 0.2 10^3/uL (0.0-0.7); EOSINOPHILS % (AUTO) 3.5 %; HCT - HEMATOCRIT 42.5 % (42.0-52.0); HGB - HEMOGLOBIN 14.7 g/dL (14.0-18.0); LYMPHOCYTES # (AUTO) 1.5 10^3/uL (1.5-3.5); LYMPHOCYTES % (AUTO) 27.9 %; MEAN CORPUSCULAR HEMOGLOBIN 33.6 pg (27.0-31.0); MEAN CORPUSCULAR HGB CONC 34.6 g/dL (32.0-36.0); MEAN CORPUSCULAR VOLUME 97.3 fL (80.0-94.0); MEAN PLATELET VOLUME 9.6 fL (7.4-11.4); MONOCYTES # (AUTO) 0.3 10^3/uL (0.0-1.0); MONOCYTES % (AUTO) 5.8 %; NEUTROPHILS # (AUTO) 3.2 10^3/uL (1.5-6.6); NEUTROPHILS % (AUTO) 60.9 %; PLT - PLATELET COUNT 116 10^3/uL (130-450); RED BLOOD COUNT 4.37 10^6/uL (4.70-6.10); RED CELL DISTRIBUTION WIDTH 12.3 % (12.0-15.0); WHITE BLOOD COUNT 5.2 x10^3/uL (4.8-10.8)
[2021-04-05 22:25] LABS: MUDS CUTOFF CONCENTRATIONS CUTOFF CONC BELOW:
[2021-04-05 22:26] LABS: BILIRUBIN,URINE NEGATIVE (NEGATIVE); GLUCOSE, URINE (UA) NEGATIVE (NEGATIVE); KETONES,URINE (UA) TRACE mg/dL (NEGATIVE); LEUKOCYTE ESTERASE, URINE NEGATIVE (NEGATIVE); NITRITE,URINE NEGATIVE (NEGATIVE); OCCULT BLOOD,URINE NEGATIVE (NEGATIVE); PH,URINE 6.5 PH (5.0-7.5); PROTEIN,URINE 30 mg/dL (NEGATIVE); UROBILINOGEN,URINE 0.2 (NORMAL) E.U./dL (NORMAL)
[2021-04-05 22:27] LABS: ACETAMINOPHEN < 10 ug/mL (10-30); ALBUMIN 4.1 g/dL (3.2-5.5); ALBUMIN/GLOBULIN RATIO 1.3 (1.0-2.2); ALKALINE PHOSPHATASE 78 IU/L (42-121); ALT ALANINE AMINOTRANSFERASE 61 IU/L (10-60); AST ASPARTATE AMINOTRANSFERASE 111 IU/L (10-42); BILIRUBIN,TOTAL 0.5 mg/dL (0.2-1.0); BUN - BLOOD UREA NITROGEN 11 mg/dL (6-20); CALCIUM 9.2 mg/dL (8.5-10.3); CARBON DIOXIDE - CO2 28 mmol/L (21-32); CHLORIDE 106 mmol/L (101-111); CREATININE 0.7 mg/dL (0.6-1.2); ETOH - ETHANOL 397.4 mg/dL; GFR - MDRD 126 (>89); GLUCOSE 103 mg/dL (70-100); LIPASE 201 U/L (22-51); POTASSIUM 3.4 mmol/L (3.5-5.0); SALICYLATE < 6.0 mg/dL; SODIUM 147 mmol/L (135-145); TOTAL PROTEIN 7.3 g/dL (6.7-8.2)
[2021-04-05 22:28] LABS: CLARITY,URINE CLEAR (CLEAR)
[2021-04-05 22:34] LABS: AMORPHOUS SEDIMENT,UR Rare /LPF; BACTERIA,URINE None Seen /HPF (None Seen); MUCUS,URINE Few Strands; RBC,URINE None Seen /HPF (0-5); SQUAMOUS EPITHELIAL CELL,UR RARE Squamous (<= Few); WBC,URINE 0-3 /HPF (0-3)
--- NOTE | 2021-04-05 22:36 | ED Physician Documentation ---
PD HPI MHE - Stated complaint Stated Complaint: MHE - Chief complaint Chief Complaint: MHE - History obtained from History obtained from: Patient, Police - History of Present Illness Primary symptom: Suicidal ideation - Additional information Additional information: brought to ED by police with JENNIFER form. Patient has been drinking alcohol tonight and got into an argument with his fiancee; he took a knife and made suicidal threats to his fiancee who then called 911. JENNIFER form indicates patient is brought to ED involuntarily. Patient denies SI, HI at this time. Review of Systems Unable to obtain: Intoxicated PD PAST MEDICAL HISTORY - Past Medical History Past Medical History: Yes Cardiovascular: Coronary artery disease, [place] Respiratory: None Neuro: None Endocrine/Autoimmune: None GI: GERD : None HEENT: Other Psych: Claustrophobia Musculoskeletal: None Derm: None - Past Surgical History Past Surgical History: Yes General: Other Ortho: Knee replacement, ACL reconstruction - Present Medications Home Medications: Ambulatory Orders Medication Instructions Recorded Confirmed Gabapentin [Neurontin] 300 mg PO BID 09/24/20 04/05/21 Metoprolol Succinate [Toprol Xl] 25 mg PO DAILY 09/24/20 04/05/21 Nitroglycerin [Nitrostat] 0.4 mg PO Q5MIN PRN 09/24/20 09/24/20 traZODone [Desyrel] 50 mg PO HS PRN 09/24/20 04/05/21 - Allergies Allergies/Adverse Reactions: Allergies Allergy/AdvReac Type Severity Reaction Status Date / Time bee venom protein (honey bee) Allergy Anaphylaxis Verified 04/05/21 21:31 - Social History Does the pt smoke?: Yes Smoking Status: Current every day smoker Does the pt drink ETOH?: Yes ETOH Use: Liquor Does the pt have substance abuse?: No - Immunizations Immunizations are current?: No Immunizations: TDAP >10years/unknown - POLST Patient has POLST: No POLST Status: Full Code PD ED PE NORMAL - Vitals Vital signs reviewed: Yes - General General: Alert and oriented X 3, No acute distress, Well developed/nourished, Other (slured speech) - Cardiac Cardiac: RRR, No murmur - Respiratory Respiratory: No respiratory distress, Clear bilaterally - Neuro Eye Opening: Spontaneous Motor: Obeys Commands Verbal: Oriented GCS Score: 15 Results - Vitals Vitals: Oxygen O2 Source Room air - Labs Labs: Laboratory Tests 04/05/21 04/05/21 04/05/21 21:57 22:05 22:05 WBC 5.2 RBC 4.37 L Hgb 14.7 Hct 42.5 MCV 97.3 H MCH 33.6 H MCHC 34.6 RDW 12.3 Plt Count 116 L MPV 9.6 Neut # (Auto) 3.2 Lymph # (Auto) 1.5 Morton # (Auto) 0.3 Eos # (Auto) 0.2 Baso # (Auto) 0.1 Absolute Nucleated RBC 0.00 Nucleated RBC % 0.0 Sodium 147 H Potassium 3.4 L Chloride 106 Carbon Dioxide 28 Anion Gap 13.0 BUN 11 Creatinine 0.7 Estimated GFR (MDRD) 126 Glucose 103 H Calcium 9.2 Total Bilirubin 0.5 AST 111 H ALT 61 H Alkaline Phosphatase 78 Total Protein 7.3 Albumin 4.1 Globulin 3.2 Albumin/Globulin Ratio 1.3 Lipase 201 H TSH Urine Color Urine Clarity Urine pH Ur Specific [place] Urine Protein Urine Glucose (UA) Urine Ketones Urine Occult Blood Urine Nitrite Urine Bilirubin Urine Urobilinogen Ur Leukocyte Esterase Urine RBC Urine WBC Ur Squamous Epith Cells Amorphous Sediment Urine Bacteria Urine Mucus Ur Microscopic Review Urine Culture Comments Nasal Adenovirus (PCR) NOT DETECTED Nasal B. parapertussis DNA (PCR) NOT DETECTED Nasal Coronavir 229E PCR NOT DETECTED Nasal Coronavir HKU1 PCR NOT DETECTED Nasal Coronavir NL63 PCR NOT DETECTED Nasal Coronavir OC43 PCR NOT DETECTED Nasal Enterovir/Rhinovir PCR NOT DETECTED Nasal Influenza B PCR NOT DETECTED Nasal Influenza A PCR NOT DETECTED Nasal Parainfluen 1 PCR NOT DETECTED Nasal Parainfluen 2 PCR NOT DETECTED Nasal Parainfluen 3 PCR NOT DETECTED Nasal Parainfluen 4 PCR NOT DETECTED Nasal RSV (PCR) NOT DETECTED Nasal B.pertussis DNA PCR NOT DETECTED Nasal C.pneumoniae (PCR) NOT DETECTED John Human Metapneumo PCR NOT DETECTED Nasal M.pneumoniae (PCR) NOT DETECTED Nasal SARS-CoV-2 (PCR) NOT DETECTED Salicylates < 6.0 Urine Opiates Screen Ur Oxycodone Screen Urine Methadone Screen Ur Propoxyphene Screen Acetaminophen < 10 L Ur Barbiturates Screen Ur Tricyclics Screen Ur Phencyclidine Scrn Ur Amphetamine Screen U Methamphetamines Scrn U Benzodiazepines Scrn Urine Cocaine Screen U Cannabinoids Screen Ethyl Alcohol 397.4 04/05/21 04/05/21 04/06/21 22:05 22:17 10:36 WBC RBC Hgb Hct MCV MCH MCHC RDW Plt Count MPV Neut # (Auto) Lymph # (Auto) Morton # (Auto) Eos # (Auto) Baso # (Auto) Absolute Nucleated RBC Nucleated RBC % Sodium Potassium Chloride Carbon Dioxide Anion Gap BUN Creatinine Estimated GFR (MDRD) Glucose Calcium Total Bilirubin AST ALT Alkaline Phosphatase Total Protein Albumin Globulin Albumin/Globulin Ratio Lipase TSH 0.74 Urine Color YELLOW Urine Clarity CLEAR Urine pH 6.5 Ur Specific [place] 1.020 Urine Protein 30 H Urine Glucose (UA) NEGATIVE Urine Ketones TRACE Urine Occult Blood NEGATIVE Urine Nitrite NEGATIVE Urine Bilirubin NEGATIVE Urine Urobilinogen 0.2 (NORMAL) Ur Leukocyte Esterase NEGATIVE Urine RBC None Seen Urine WBC 0-3 Ur Squamous Epith Cells RARE Squamous Amorphous Sediment Rare Urine Bacteria None Seen Urine Mucus Few Strands Ur Microscopic Review INDICATED Urine Culture Comments NOT INDICATED Nasal Adenovirus (PCR) Nasal B. parapertussis DNA (PCR) Nasal Coronavir 229E PCR Nasal Coronavir HKU1 PCR Nasal Coronavir NL63 PCR Nasal Coronavir OC43 PCR Nasal Enterovir/Rhinovir PCR Nasal Influenza B PCR Nasal Influenza A PCR Nasal Parainfluen 1 PCR Nasal Parainfluen 2 PCR Nasal Parainfluen 3 PCR Nasal Parainfluen 4 PCR Nasal RSV (PCR) Nasal B.pertussis DNA PCR Nasal C.pneumoniae (PCR) John Human Metapneumo PCR Nasal M.pneumoniae (PCR) Nasal SARS-CoV-2 (PCR) Salicylates Urine Opiates Screen NEGATIVE Ur Oxycodone Screen NEGATIVE Urine Methadone Screen NEGATIVE Ur Propoxyphene Screen NEGATIVE Acetaminophen Ur Barbiturates Screen NEGATIVE Ur Tricyclics Screen NEGATIVE Ur Phencyclidine Scrn NEGATIVE Ur Amphetamine Screen NEGATIVE U Methamphetamines Scrn NEGATIVE U Benzodiazepines Scrn POSITIVE H Urine Cocaine Screen NEGATIVE U Cannabinoids Screen POSITIVE H Ethyl Alcohol 85.3 PD MEDICAL DECISION MAKING - ED course Complexity details: reviewed old records, reviewed results, considered differential, d/w patient ED course: patient is initially calm and cooperative but early in ED stay he is increasingly demanding to leave. He is too intoxicated to consider jose for safety and thus he is held in ED overnight pending sobriety so as to provide more confidence in the veracity of his responses Departure - Departure Disposition: 01 Home, Self Care Clinical Impression: Suicidal thoughts Alcoholic intoxication Qualifiers: Complication of substance-induced condition: uncomplicated Qualified Code(s): F10.920 - Alcohol use, unspecified with intoxication, uncomplicated Condition: Good Instructions: ED Alcohol Intoxication Follow-Up: [facility] [Provider Group] Comments: I would encourage you to seek outpatient services for substance abuse. Follow-up with your primary care provider for any medical needs. Return to the emergency department if you feel suicidal. Discharge Date/Time: 04/06/21 12:44
[2021-04-05 22:38] LABS: THC CANNABINOID SCREEN, URINE POSITIVE (NEGATIVE)
[2021-04-05 22:39] LABS: AMPHETAMINE SCREEN,URINE NEGATIVE (NEGATIVE); BARBITURATE SCREEN,UR NEGATIVE (NEGATIVE); BENZODIAZEPINES SCREEN, URINE POSITIVE (NEGATIVE); COCAINE SCREEN URINE NEGATIVE (NEGATIVE); METHADONE SCREEN, URINE NEGATIVE (NEGATIVE); METHAMPHETAMINES SCREEN, URINE NEGATIVE (NEGATIVE); OPIATE SCREEN, URINE NEGATIVE (NEGATIVE); OXYCODONE SCREEN, URINE NEGATIVE (NEGATIVE); PROPOXYPHENE SCREEN, URINE NEGATIVE (NEGATIVE); TRICYCLIC ANTIDEPRESSANT,URINE NEGATIVE (NEGATIVE)
[2021-04-05 23:03] LABS: B. PARAPERTUSSIS- RESP PCR PAN NOT DETECTED; B. PERTUSSIS- RESP PCR PANEL NOT DETECTED; C. PNEUMONIAE- RESP PCR PANEL NOT DETECTED; CORONAVIRUS 229E-RESP PCR NOT DETECTED; CORONAVIRUS HKU1-RESP PCR NOT DETECTED; CORONAVIRUS NL63-RESP PCR NOT DETECTED; CORONAVIRUS OC43-RESP PCR NOT DETECTED; HUMAN METAPNEUMOVIRUS NOT DETECTED; INFLUENZA A- RESP PCR PANEL NOT DETECTED; INFLUENZA B - RESP PCR PANEL NOT DETECTED; M. PNEUMONIAE- RESP PCR PANEL NOT DETECTED; PARAINFLUENZA VIRUS 1 NOT DETECTED; PARAINFLUENZA VIRUS 2 NOT DETECTED; PARAINFLUENZA VIRUS 3 NOT DETECTED; PARAINFLUENZA VIRUS 4 NOT DETECTED; RHINOVIRUS/ENTEROVIRUS NOT DETECTED; RSV- RESP PCR PANEL NOT DETECTED; SARS-CoV-2 -RESP PCR PANEL NOT DETECTED
[2021-04-06] MEDS ORDERED: traZODone 50 MG TABLET PO STA (01:25)
[2021-04-06 06:13] VITALS: BP 122/85
--- NOTE | 2021-04-06 12:23 | ED Physician Documentation ---
ED Addendum - Addendum Addendum: 04/06/21 12:21 Patient's care was turned over to me by Dr. Díaz for final dispo. His repeat blood alcohol was 85.3. He was interviewed by the mental health social worker and denied any suicidal or homicidal ideation at this time. He declined to her contacting any family. I spoke with the patient as well he does not feel homicidal or suicidal he says he just got drunk last night. He is declining any detox services at this time. Departure - Departure Disposition: 01 Home, Self Care Clinical Impression: Alcoholic intoxication, Suicidal thoughts Condition: Good Instructions: ED Alcohol Intoxication Follow-Up: [facility] [Provider Group] Comments: I would encourage you to seek outpatient services for substance abuse. Follow-up with your primary care provider for any medical needs. Return to the emergency department if you feel suicidal.
== END 2021-04-06 12:44 | disposition home or self-care (01) ==
LOC: EDUNIT# → ED 21:27
DX: R45.851 Suicidal ideations (principal); F10.129 Alcohol abuse with intoxication, unspecified; F17.200 Nicotine dependence, unspecified, uncomplicated
CPT/HCPCS: 0202U; 36415; 80053; 80306; 80307; 80320; 80329; 81001; 83690; 84443; 85025; 99281; 99283; A9270; 81003; 87086

== ENCOUNTER 2021-10-13 13:06 | Outpatient (CLI) | payer MEDICAID ==
[2021-10-13 17:51] LABS: BASOPHILS # (AUTO) 0.1 10^3/uL (0.0-0.1); EOSINOPHILS # (AUTO) 0.1 10^3/uL (0.0-0.7); EOSINOPHILS % (AUTO) 1.3 %; HCT - HEMATOCRIT 48.5 % (42.0-52.0); HGB - HEMOGLOBIN 16.4 g/dL (14.0-18.0); LYMPHOCYTES # (AUTO) 2.4 10^3/uL (1.5-3.5); LYMPHOCYTES % (AUTO) 21.2 %; MEAN CORPUSCULAR HEMOGLOBIN 31.9 pg (27.0-31.0); MEAN CORPUSCULAR HGB CONC 33.8 g/dL (32.0-36.0); MEAN CORPUSCULAR VOLUME 94.4 fL (80.0-94.0); MEAN PLATELET VOLUME 10.4 fL (7.4-11.4); MONOCYTES # (AUTO) 0.6 10^3/uL (0.0-1.0); MONOCYTES % (AUTO) 5.5 %; NEUTROPHILS # (AUTO) 7.8 10^3/uL (1.5-6.6); NEUTROPHILS % (AUTO) 70.7 %; PLT - PLATELET COUNT 254 10^3/uL (130-450); RED BLOOD COUNT 5.14 10^6/uL (4.70-6.10); RED CELL DISTRIBUTION WIDTH 13.1 % (12.0-15.0); WHITE BLOOD COUNT 11.1 x10^3/uL (4.8-10.8)
[2021-10-13 18:13] LABS: ALBUMIN 4.6 g/dL (3.2-5.5); ALBUMIN/GLOBULIN RATIO 1.5 (1.0-2.2); BILIRUBIN,TOTAL 0.5 mg/dL (0.2-1.0); CALCIUM 9.3 mg/dL (8.5-10.3); MAGNESIUM 1.8 mg/dL (1.7-2.8); POTASSIUM 3.8 mmol/L (3.5-5.0); TOTAL PROTEIN 7.7 g/dL (6.7-8.2)
== END 2021-10-13 13:07 | disposition home or self-care (01) ==
LOC: LAB.N 13:06
PROVIDERS: ATTEND Internal Medicine
DX: E87.6 Hypokalemia (principal); D64.9 Anemia, unspecified
CPT/HCPCS: 36415; 80053; 83735; 85025